=== PATIENT | male | born 1970 | race Caucasian/White ===

== ENCOUNTER 2020-09-09 09:06 | Outpatient (REF) | payer OTHER, SELFPAY ==
[2020-09-09 11:11] LABS: MANUAL DIFF FLAG NO
[2020-09-09 11:24] LABS: Basophils Percent Auto 0.6 % (0-2); Eosinophils Absolute Auto 0.2 X10*3/uL (0.0-0.4); Eosinophils Percent Auto 3.9 % (0-4); Hematocrit 47.8 % (42-52); Hemoglobin 15.9 g/dl (14.0-18.0); Imm Gran Abs Auto 0.01 X10*3/uL (0.00-0.03); Imm Gran Pct Auto 0.2 % (0.0-0.4); Lymphocytes Absolute Auto 2.2 X10*3/uL (1.2-4.9); Lymphocytes Percent Auto 41.1 % (20-40); Mean Corpuscular HGB Conc 33.3 g/dl (31.0-36.0); Mean Corpuscular Hemoglobin 29.4 pg (27.0-33.0); Mean Corpuscular Volume 88.5 fL (80-98); Mean Platelet Volume 9.4 fL (9.4-12.4); Monocytes Absolute Auto 0.4 X10*3/uL (0.1-1.2); Monocytes Percent Auto 7.2 % (2-11); Neutrophils Absolute Auto 2.6 X10*3/uL (2.0-8.3); Platelet Count 246 X10*3/uL (160-400); Red Cell Distribution Width 12.1 % (11.0-16.0); White Blood Count 5.4 X10*3/uL (4.8-10.8)
[2020-09-09 11:57] LABS: Prostate Specific Antigen Scr 1.58 ng/mL (<0.05-4.0); TSH reflex Free T4 0.85 uIU/mL (0.32-4.0)
[2020-09-09 12:03] LABS: Alanine Aminotransferase 38 U/L (0-40); Albumin Level 4.5 g/dL (3.5-5.0); Alkaline Phosphatase 83 U/L (39-117); Anion Gap 13 (12-20); Aspartate Amino Transferase 34 U/L (5-37); Bilirubin Total 0.6 mg/dL (0.0-1.0); Blood Urea Nitrogen 18 mg/dL (9-16); Calcium 8.9 mg/dL (8.4-10.2); Carbon Dioxide 27 mmol/L (22-29); Chloride 103 mmol/L (96-108); Cholesterol 320 mg/dL; Estimated Glomerular Filt Rate > 60; Glucose Fasting 90 mg/dL (60-99); HDL Cholesterol 33 mg/dL; Potassium 3.9 mmol/L (3.3-5.1); Sodium 139 mmol/L (135-145); Total Protein 7.8 g/dL (6.5-8.0); Triglycerides 1463 mg/dL
== END 2020-09-09 09:07 | disposition home or self-care (01) ==
LOC: HO.HMGCLDS 09:06
PROVIDERS: PCP Physician Assistant; Visit Provider Physician Assistant
DX: E78.1 Pure hyperglyceridemia (principal); R53.83 Other fatigue; Z12.5 Encounter for screening for malignant neoplasm of prostate
CPT/HCPCS: 36415; 80053; 80061; 84153; 84443; 85025

== ENCOUNTER → 2021-01-15 08:30 | Outpatient (BNVA) | payer OTHER, SELFPAY | PROVIDERS: PCP Physician Assistant; Visit Provider Internal Medicine ==

== ENCOUNTER 2021-01-19 09:27 | Outpatient (REF) | payer OTHER, SELFPAY ==
[2021-01-19 11:52] LABS: Estimated Average Glucose 103 mg/dL; Hemoglobin A1c % 5.2 %
[2021-01-19 12:03] LABS: Alanine Aminotransferase 25 U/L (0-40); Albumin Level 4.4 g/dL (3.5-5.0); Alkaline Phosphatase 77 U/L (39-117); Anion Gap 13 (12-20); Aspartate Amino Transferase 25 U/L (5-37); Bilirubin Total 0.8 mg/dL (0.0-1.0); Blood Urea Nitrogen 14 mg/dL (9-16); Calcium 9.3 mg/dL (8.4-10.2); Carbon Dioxide 28 mmol/L (22-29); Chloride 106 mmol/L (96-108); Cholesterol 197 mg/dL; Estimated Glomerular Filt Rate > 60; Glucose Random 80 mg/dL (60-115); HDL Cholesterol 45 mg/dL; LDL Cholesterol Calculated 127 mg/dl; Lipase 11 U/L (8-78); Sodium 143 mmol/L (135-145); Triglycerides 125 mg/dL
[2021-01-19 12:13] LABS: Free T4 (Free Thyroxine) 0.92 ng/dL (0.71-1.85); Vitamin D 25-OH Total 35.3 ng/mL (>30)
[2021-01-19 12:26] LABS: Thyroid Stimulating Hormone 0.47 uIU/mL (0.32-4.0)
[2021-01-21 02:26] LABS: LDL Cholesterol Direct 114 mg/dL (<100)
[2021-01-26 13:46] LABS: Apolipoprotein B 99 mg/dL (<90)
== END 2021-01-19 09:28 | disposition home or self-care (01) ==
LOC: HO.HMGCLDS 09:27
PROVIDERS: Physician Assistant; Visit Provider Internal Medicine
DX: E78.5 Hyperlipidemia, unspecified (principal); E78.1 Pure hyperglyceridemia; E55.9 Vitamin D deficiency, unspecified
CPT/HCPCS: 36415; 80053; 80061; 82172; 82306; 83036; 83690; 83721; 84439; 84443

== ENCOUNTER → 2021-04-13 10:14 | Outpatient (BNVA) | payer OTHER, SELFPAY | PROVIDERS: PCP Physician Assistant; Visit Provider Internal Medicine ==

== ENCOUNTER 2021-05-28 10:00 | Outpatient (REF) | payer OTHER, SELFPAY ==
[2021-05-28 12:11] LABS: Cholesterol 182 mg/dL; HDL Cholesterol 54 mg/dL; LDL Cholesterol Calculated 97 mg/dl; Triglycerides 159 mg/dL
[2021-05-30 01:02] LABS: LDL Cholesterol Direct 98 mg/dL (<100)
== END 2021-05-28 10:01 | disposition home or self-care (01) ==
LOC: HO.HMGCLDS 10:00
PROVIDERS: PCP Internal Medicine; Visit Provider Internal Medicine
DX: E78.5 Hyperlipidemia, unspecified (principal)
CPT/HCPCS: 36415; 80061; 83721

== ENCOUNTER → 2021-06-03 09:29 | Outpatient (BNVA) | payer OTHER, SELFPAY | PROVIDERS: PCP Internal Medicine; Visit Provider Internal Medicine ==

== ENCOUNTER 2021-09-02 06:30 | Outpatient (REF) | payer OTHER, SELFPAY ==
[2021-09-02 12:56] LABS: Vitamin D 25-OH Total 27.5 ng/mL (>30)
[2021-09-02 13:27] LABS: Cholesterol 136 mg/dL; HDL Cholesterol 42 mg/dL; LDL Cholesterol Calculated 55 mg/dl; Triglycerides 195 mg/dL
[2021-09-03 10:08] LABS: LDL Cholesterol Direct 55 mg/dL (<100)
== END 2021-09-02 06:31 | disposition home or self-care (01) ==
LOC: HO.HMGCLDS 06:30
PROVIDERS: PCP Internal Medicine; Visit Provider Internal Medicine
DX: E78.1 Pure hyperglyceridemia (principal); E78.5 Hyperlipidemia, unspecified; E55.9 Vitamin D deficiency, unspecified
CPT/HCPCS: 36415; 80061; 82306; 83721

== ENCOUNTER 2022-02-12 09:28 | Outpatient (REF) | payer OTHER, SELFPAY ==
[2022-02-12 11:56] LABS: Cholesterol 156 mg/dL; HDL Cholesterol 43 mg/dL; LDL Cholesterol Calculated 78 mg/dl; Triglycerides 177 mg/dL
[2022-02-12 12:23] LABS: Vitamin D 25-OH Total 43.1 ng/mL (>30)
[2022-02-14 03:01] LABS: LDL Cholesterol Direct 71 mg/dL (<100)
== END 2022-02-12 09:29 | disposition home or self-care (01) ==
LOC: HO.HMGCLDS 09:28
PROVIDERS: PCP Internal Medicine; Visit Provider Internal Medicine
DX: E78.1 Pure hyperglyceridemia (principal); E55.9 Vitamin D deficiency, unspecified
CPT/HCPCS: 36415; 80061; 82306; 83721

== ENCOUNTER 2022-04-08 15:22 | Outpatient (REF) | payer OTHER, SELFPAY ==
--- NOTE | ~2022-04-08 | US_ITS ---
EXAMINATION: US THYROID CLINICAL INFORMATION: Nontoxic goiter, unspecified. COMPARISON: None TECHNIQUE: Linear transducer grayscale and color Doppler examination with attention to the region of the thyroid. FINDINGS: SIZE: Measurements of the thyroid lobes and nodules are given in sagittal, anteroposterior and transverse dimensions respectively. Right Thyroid Lobe: 5.24 x 1.83 x 1.36 cm, volume 6.82 mL. Parenchyma: The gland echotexture is homogeneous. Thyroid vascularity is normal. Left Thyroid Lobe: 5.54 x 1.85 x 1.25 cm, volume 6.70 mL. Parenchyma: The gland echotexture is homogeneous. Thyroid vascularity is normal. Isthmus: 0.50 cm in maximum AP dimension. No focal thyroid nodule is seen. NODES: No lymphadenopathy is seen in the tissue surrounding the thyroid gland. US/US thyroid IMPRESSION: Normal thyroid ultrasound.
== END 2022-04-08 15:23 | disposition home or self-care (01) ==
LOC: HO.HMGCX 15:22
PROVIDERS: PCP Physician Assistant; Visit Provider Internal Medicine
DX: E04.9 Nontoxic goiter, unspecified (principal)
CPT/HCPCS: 76536

== ENCOUNTER 2022-11-12 10:19 | Outpatient (REF) | payer OTHER, SELFPAY ==
[2022-11-12 12:19] LABS: Alanine Aminotransferase 33 U/L (0-40); Albumin Level 4.3 g/dL (3.5-5.0); Alkaline Phosphatase 90 U/L (39-117); Anion Gap 8 (12-20); Aspartate Amino Transferase 28 U/L (5-37); Bilirubin Total 0.7 mg/dL (0.0-1.0); Blood Urea Nitrogen 15 mg/dL (9-16); Calcium 9.3 mg/dL (8.4-10.2); Carbon Dioxide 30 mmol/L (22-29); Chloride 108 mmol/L (96-108); Estimated Glomerular Filt Rate > 60; Glucose Fasting 88 mg/dL (60-99); Sodium 142 mmol/L (135-145); Total Protein 6.8 g/dL (6.5-8.0)
[2022-11-12 12:38] LABS: Prostate Specific Antigen Scr 1.71 ng/mL (<0.05-4.0)
== END 2022-11-12 10:20 | disposition home or self-care (01) ==
LOC: HO.HMGCLDS 10:19
PROVIDERS: PCP Physician Assistant; Visit Provider Physician Assistant
DX: Z12.5 Encounter for screening for malignant neoplasm of prostate (principal); E78.1 Pure hyperglyceridemia
CPT/HCPCS: 36415; 80053; 84153

== ENCOUNTER 2022-11-22 09:29 | Day surgery (SDC) | payer OTHER, SELFPAY ==
--- NOTE | 2022-11-19 14:03 | P.CONAN_ITS ---
Documented by User: Kinjal White NP 11/19/22 14:05 HPI - Anesthesia Eval Consult details Narrative: 52yo M for Colonoscopy PMFSH Active Problems Active Problems: All Active Problems (Updated 03/02/22 @ 13:24 by Shyla Dong DO) Goiter (Acute) COVID-19 virus infection (Acute) Annual physical exam (Acute) Obstructive sleep apnea (Acute) Bilateral renal stones (Acute) Generalized anxiety disorder (Acute) Asthma (Acute) Vitamin D deficiency (Acute) Hyperlipidemia (Acute) Family history of colon cancer (Acute) Hypertriglyceridemia (Acute) Past Medical History Medical History Asthma Bilateral renal stones Family history of colon cancer Generalized anxiety disorder Goiter Hyperlipidemia Vitamin D deficiency Family History Family History (Updated 04/06/22 @ 16:20 by Shade Odonnell PA-C) Father Colon cancer Mother No problems noted. Paternal Uncle Prostate cancer Maternal Grandfather Myocardial infarct Brother Prostate cancer Surgical History Surgical History History of vasectomy Social History Social History (Updated 04/06/22 @ 16:22 by Shade Odonnell PA-C) Housing: House Alcohol intake: current Alcohol intake frequency: holidays/special occasions only Patient Tobacco Use Status: Never used Tobacco e-Cigarette/Vaping Use: Never Used Second Hand Smoke Exposure: No Use of substances other than those prescribed or required for medical reasons: No Are you DNR?: No Advance Directives: No Advance Directives Information Provided: Yes Recently lost weight without trying: No Nutrition Risks: No Nutritional Risk Current occupational status: employed Current occupation: [employer] Cognitive needs: No Hearing needs: No Vision needs: No Meds Allergies Allergy/AdvReac Type Severity Reaction Status Date / Time povidone-iodine [Betadine] Allergy Unknown Stomach Verified 04/06/22 16:09 Pain soap [Betadine] Allergy Unknown Stomach Verified 04/06/22 16:09 Pain fenofibrate AdvReac Mild body and Verified 04/06/22 16:09 stomach pain Home Medications Medication Instructions Recorded Confirmed Last Taken Type cholecalciferol (vitamin D3) 25 50 mcg PO DAILY 03/31/21 11/22/22 Unknown History mcg (1,000 unit) capsule Exam Exam Date and Time: November 19, 2022 1403 Pertinent Lab Results Pertinent Lab Results: Laboratory Tests 11/12/22 10:24 Sodium 142 Potassium 4.0 Chloride 108 Carbon Dioxide 30 H BUN 15 Creatinine 0.75 Assessment and Plan Assessment Anesthesia Assessment: Chart Reviewed Documented by User: Melissa Kam MD 11/22/22 12:57 PMFSH Past Medical History Medical History Asthma Bilateral renal stones Family history of colon cancer Generalized anxiety disorder Goiter Hyperlipidemia Vitamin D deficiency Family History Family History (Updated 04/06/22 @ 16:20 by Shade Odonnell PA-C) Father Colon cancer Mother No problems noted. Paternal Uncle Prostate cancer Maternal Grandfather Myocardial infarct Brother Prostate cancer Family history of problems with anesthesia: No Surgical History Surgical History History of vasectomy History of Problems with Anesthesia: No Social History Social History (Updated 04/06/22 @ 16:22 by Shade Odonnell PA-C) Housing: House Alcohol intake: current Alcohol intake frequency: holidays/special occasions only Patient Tobacco Use Status: Never used Tobacco e-Cigarette/Vaping Use: Never Used Second Hand Smoke Exposure: No Use of substances other than those prescribed or required for medical reasons: No Are you DNR?: No Advance Directives: No Advance Directives Information Provided: Yes Recently lost weight without trying: No Nutrition Risks: No Nutritional Risk Current occupational status: employed Current occupation: [employer] Cognitive needs: No Hearing needs: No Vision needs: No Meds Allergies Allergy/AdvReac Type Severity Reaction Status Date / Time povidone-iodine [Betadine] Allergy Unknown Stomach Verified 04/06/22 16:09 Pain soap [Betadine] Allergy Unknown Stomach Verified 04/06/22 16:09 Pain fenofibrate AdvReac Mild body and Verified 04/06/22 16:09 stomach pain Home Medications Medication Instructions Recorded Confirmed Last Taken Type cholecalciferol (vitamin D3) 25 50 mcg PO DAILY 03/31/21 11/22/22 Unknown History mcg (1,000 unit) capsule Exam Airway Mallampati Class: I TM Dist: >3cm Neck ROM: Full Loose/Missing/Broken Teeth: No Heart: rr Lungs: cta Assessment and Plan Assessment Anesthesia Assessment: Anesthesia Plan Discussed Final Anesthetic Review Family History of Problems with Anesthesia: No History of Problems with Anesthesia: No NPO: Yes ASA Class: I Final Preanesthetic Review: No Changes in Pt Med Stat, Meds/Allgs Chart Reviewed, Consent Obtained/Reviewed and Anes Risks/Benef Reviewed Patient Risk: Low Procedure Risk: Low Anesthetic Plan Anesthetic Plan: MAC: Disposition: Standard PACU
[2022-11-22 10:05] VITALS: BMI 25.6
[2022-11-22 10:24] VITALS: BP 137/85; PULSE 63; RESP 16; TEMP 36.2; O2SAT 98
[2022-11-22] MEDS: Lactated Ringers 1,000 ML 100 ML IVCONT (10:42)
[2022-11-22 12:00] VITALS: BP 110/71; PULSE 68; RESP 16; TEMP 36.6; O2SAT 93
--- NOTE | 2022-11-22 12:01 | P.BOP_ITS ---
Brief Operative Note Date of Service: 11/22/22 Pre-op diagnosis: Screening Post-op diagnosis: other (Polyp) Procedure: Colonoscopy to the cecum and TI with bx/removal of polyp Surgeon: David Peace Anesthesia: MAC Was an Case Checker used for this Procedure?: No Estimated blood loss (mL): 2.0 Pathology: other (A. Polyp at 30cm) Condition: stable Disposition: PACU
[2022-11-22 12:15] VITALS: BP 127/87; PULSE 64; RESP 16; TEMP 36.6; O2SAT 97
--- NOTE | 2022-11-22 23:38 | OP_ITS ---
DATE OF SERVICE: 11/22/2022 SURGEON: David Peace MD INDICATIONS: The patient presents for evaluation of colorectal cancer screening and family history of colon cancer. Full consent has been obtained from him for this, including risks of bleeding and perforation. PREOPERATIVE DIAGNOSIS: Colorectal cancer screening and family history of colon cancer. POSTOPERATIVE DIAGNOSIS: Colorectal cancer screening and family history of colon cancer, small colon polyp, mild diverticulosis and small internal hemorrhoids. PROCEDURE PERFORMED: Colonoscopy to the cecum and terminal ileum with biopsy and removal of polyp. ESTIMATED BLOOD LOSS: COMPLICATIONS: ANESTHESIA: Medication Used: Monitored anesthesia care. ASSISTANTS: SPECIMENS: DESCRIPTION OF PROCEDURE: The patient was placed in the left lateral decubitus position. The digital rectal exam revealed no abnormalities. The Olympus video pediatric colonoscope was then entered into the rectum and advanced easily to the cecum. Once in the cecum, I did identify normal-appearing cecal pouch with appendiceal orifice and a normal-appearing ileocecal valve. The terminal ileum was cannulated and appeared normal. The scope was withdrawn back in the colon. The entire cecum and the ileocecal valve appeared normal. The scope was then slowly withdrawn, assessing all mucosal surfaces carefully. Preparation was excellent. At 30 cm, was a flat, approximately 4 or 5 mm polyp, which was biopsied and completely removed with cold biopsy forceps. I did not visualize any other polyps, colitis, or angiodysplasia. There were occasional diverticula noted in the sigmoid colon. In the rectum, scope was retroflexed, visualizing small internal hemorrhoids, but no other pathology. The rectal mucosa appeared normal. The scope was straightened and withdrawn from the patient. He tolerated the procedure well and was returned to the recovery area in stable condition. IMPRESSION: 1. Small colon polyp. 2. Diverticulosis. 3. Internal hemorrhoids. PLAN: The results of the pathology will be checked. I would recommend a repeat colonoscopy in 5 years for further surveillance. He will, otherwise, see me on a p.r.n. basis. David Peace MD RMW/LJL / [phone]
== END 2022-11-22 12:44 | disposition home or self-care (01) ==
PROVIDERS: PCP Physician Assistant; Visit Provider Internal Medicine
PROC: 0DJD8ZZ Inspection of Lower Intestinal Tract, Via Natural or Artificial Opening Endoscopic (ICD-10-PCS; CPT 45378; principal; 2022-11-22 10:40)
DX: Z12.11 Encounter for screening for malignant neoplasm of colon (principal); Z80.0 Family history of malignant neoplasm of digestive organs; D12.5 Benign neoplasm of sigmoid colon; K57.30 Diverticulosis of large intestine without perforation or abscess without bleeding; K64.8 Other hemorrhoids; E78.5 Hyperlipidemia, unspecified; J45.909 Unspecified asthma, uncomplicated; N20.0 Calculus of kidney; Z79.899 Other long term (current) drug therapy; Z79.51 Long term (current) use of inhaled steroids; Z98.52 Vasectomy status
CPT/HCPCS: 45380; 88305

== ENCOUNTER 2023-04-20 09:30 | Outpatient (REF) | payer OTHER, SELFPAY ==
[2023-04-20 12:17] LABS: Cholesterol 145 mg/dL (<200); HDL Cholesterol 44 mg/dL (>40); LDL Cholesterol Calculated 83 mg/dL (<100); Triglycerides 93 mg/dL (<150)
[2023-04-20 12:35] LABS: Vitamin D 25-OH Total 58.1 ng/mL (>30)
[2023-04-22 08:28] LABS: LDL Cholesterol Direct 75 mg/dL (<100)
== END 2023-04-20 09:31 | disposition home or self-care (01) ==
LOC: HO.HMGCLDS 09:30
PROVIDERS: PCP Internal Medicine; Visit Provider Internal Medicine
DX: E78.1 Pure hyperglyceridemia (principal); E55.9 Vitamin D deficiency, unspecified
CPT/HCPCS: 36415; 80061; 82306; 83721

== ENCOUNTER 2023-05-20 13:50 | Outpatient (AMB) | payer OTHER, SELFPAY ==
--- NOTE | 2023-05-20 13:50 | MHC.PC.OV ---
Vital Signs 05/20/23 13:51 Height 5 ft 11 in Weight 193 lb 2 oz BMI 26.9 BP 130/80 Blood Pressure Location Lt brachial Position Sitting Pulse 83 Pulse Source Pulse Oximeter Pulse Oximetry (%) 98 Oxygen Delivery Method Room Air Intake Visit Reasons: PE Oxygen Equipment Technician Required: No Accompanied by: Self / Same As Patient Allergies povidone-iodine [Betadine] Allergy (Unknown, Verified 05/20/23 14:05) Stomach Pain soap [Betadine] Allergy (Unknown, Verified 05/20/23 14:05) Stomach Pain fenofibrate Adverse Reaction (Mild, Verified 05/20/23 14:05) body and stomach pain Medication List - Last Reconciled 05/20/23 by JEWEL Root albuterol sulfate 90 mcg/actuation (ProAir HFA) 2 puffs inhalation Q4H PRN atorvastatin 80 mg PO BEDTIME 30 days cholecalciferol (vitamin D3) 50 mcg PO DAILY fluticasone propionate 110 mcg/actuation (Flovent HFA) 2 puffs inhalation BID Tobacco use date assessed: 05/20/23 Dental Screening Dental Screen Date: 05/20/23 Did you have a dental visit in the last 12 months?: Yes Did you have a dental problem in the last 6 months where you did not have access to dental care?: No Was dental information given to patient?: Patient has dentist HPI HPI Comments History of Present Illness Details [age] year old male past medical history significant for hyperlipidemia, vitamin-D deficiency, asthma, generalized anxiety disorder. Presents today for physical exam. Denies any chest pain, palpitations, shortness of breath and syncope. Eye exam: UTD Colonoscopy: 2022, Dr. Peace recommended 5 year follow up. Flu shot given, Tdap up-to-date PSA normal in November. Fasting lipid panel reviewed with patient in office today. [facility] Medical History Asthma Bilateral renal stones Family history of colon cancer Generalized anxiety disorder Goiter Hyperlipidemia Vitamin D deficiency Surgical History History of vasectomy Family History Father Colon cancer Mother No problems noted. Paternal Uncle Prostate cancer Maternal Grandfather Myocardial infarct Brother Prostate cancer Social History Housing: House Alcohol intake: current Alcohol intake frequency: holidays/special occasions only Patient Tobacco Use Status: Never used Tobacco e-Cigarette/Vaping Use: Never Used Second Hand Smoke Exposure: No service: No Current occupational status: employed Current occupation: [employer] Current occupational exposures/hazards: Yes Cognitive needs: No Hearing needs: No Vision needs: No Questionnaire PHQ-9 Over the last 2 weeks, how often have you been bothered by any of the following problems? 1. Little interest or pleasure in doing things: not at all 2. Feeling down, depressed, or hopeless: not at all 3. Trouble falling or staying asleep, or sleeping too much: not at all 4. Feeling tired or having little energy: not at all 5. Poor appetite or overeating: not at all 6. Feeling bad about yourself - or that you are a failure or have let yourself or your family down: not at all 7. Trouble concentrating on things, such as reading the newspaper or watching television: not at all 8. Moving or speaking so slowly that other people could have noticed. Or the opposite - being so fidgety or restless that you have been moving around a lot more than usual: not at all 9. Thoughts that you would be better off or of hurting yourself in some way: not at all Total score: 0 56919 - PHQ-9 Billing: Yes Source: Developed by Drs. David Diaz, Renetta Bateman, Jose Chavez and colleagues, with an educational césar from [employer]. Thrive Questionnaire Date Thrive assessed: 05/20/23 I am a: Patient What is your living situation today?: I have a steady place to live Within the past 12 months, did the food you bought not last and you didn't have the money to get more?: Never true Within the past 12 months, did you worry whether your food would run out before you got money to buy more?: Never true Do you have trouble paying for medicines?: No Do you have trouble getting transportation to medical appointments?: No Do you have trouble paying your heating and electricity bill?: No Do you have trouble taking care of your child, family member or friend?: No Do you have trouble with day-to-day activities such as bathing, preparing meals, shopping, managing finances, etc.?: No Are you currently unemployed and looking for a job?: No Are you interested in more education?: No Please select the resources that you would like help with: None Currently or been in a relationship where the following occur: no concerns reported AUDIT C Alcohol Use Questionnaire (AUDIT-C) 1. How often do you have a drink containing alcohol?: Monthly or less 2. How many drinks containing alcohol do you have on a typical day when you are drinking?: 5 or 6 3. How often do you have six or more drinks on one occasion?: Never Total Score: 3 JUAN-7 AMB Questionnaire JUAN-7 Date JUAN - 7 assessed: 05/20/23 Feeling nervous, anxious, or on edge: 0 = Not at all Not being able to stop or control worryin = Not at all Worrying too much about different things: 0 = Not at all Trouble relaxin = Not at all Being so restless that it is hard to sit still: 0 = Not at all Becoming easily annoyed or irritable: 0 = Not at all Feeling afraid as if something awful might happen: 0 = Not at all Total JUAN-7 score (0-4 normal; 5-9 mild; 10-14 moderate; 15-21 severe): 0 Source: Developed by Drs. David Diaz, Renetta Bateman, Jose Chavez and colleagues, with an educational césar from [employer]. JUAN-7 Assessment Billing JUAN-7 Assessment Tool: JUAN-7 Assessment 40980 Review of Systems Const Denies chills, Denies fatigue, Denies fever(s) and Denies poor appetite Eyes Denies no additional complaints ENT Reports Normal hearing present Card Denies chest pain, Denies syncope, Denies rapid heart rate and Denies dyspnea Resp Denies cough and Denies dyspnea GI Denies change in stool character, Denies constipation, Denies diarrhea, Denies nausea and Denies vomiting Denies dysuria, Denies urinary frequency and Denies urinary urgency Neuro Reports Normal hearing present, Denies confusion and Denies syncope Psych Denies confusion Endo Denies fatigue Physical exam (Primary Care) Vital Signs: Last Vital Signs Pulse 83 05/20/23 13:51 BP 130/80 05/20/23 13:51 Pulse Ox 98 05/20/23 13:51 Oxygen Delivery Method Room Air 05/20/23 13:51 BMI result Body Mass Index 26.9 Tobacco/Smoking Status: Tobacco use Status Tobacco use date assessed 05/20/23 05/20/23 13:57 Patient Tobacco Use Status Never used Tobacco 05/20/23 13:57 e-Cigarette/Vaping Use Never Used 05/20/23 13:57 PHQ-9: PHQ-9 Score PHQ-9: Total score 0 05/20/23 14:04 Thrive Assessment: Date of Thrive Assessment Date Thrive assessed 05/20/23 05/20/23 13:57 Currently or been in a relationship where the following occur: no concerns reported Const General: No confusion Orientation/consciousness: No confusion HENMT Head: Yes normocephalic and Yes atraumatic Ears: external ears normal and TM's normal bilaterally General nose exam: Normal external nose present and Normal nasal mucous membranes and turbinates present Face and sinus: Yes normal facial exam and Yes sinuses nontender Mouth: moist mucous membranes Throat: Yes tonsils normal Eyes Conjunctivae: conjunctivae normal Sclerae: sclerae normal Pupils: Equal, round and reactive pupils present and Pupils normal by confrontation EOM: EOMs intact bilaterally Direct Ophthalmoscopy: normal light reflex Neck Neck: Yes no lymphadenopathy and Yes supple Thyroid: Thyroid normal Chest Chest palpation & inspection: normal inspection of the chest Resp Effort & Inspection: normal respiratory effort Auscultation: clear to auscultation bilaterally, no crackles, no rhonchi and no wheezes Cardio Rate: regular rate Rhythm: regular rhythm Peripheral pulses: radial pulses present and dorsalis pedis present GI Inspection: Yes normal to inspection Palpation (GI): Soft to palpation, nontender and No hepatosplenomegaly present Auscultation: normoactive bowel sounds Skin General skin exam: no rashes or lesions noted Neuro General: No confusion Cranial nerves: Yes Equal, round and reactive pupils present and Yes Normal hearing present Cognition (Neuro): normal cognition Gait exam (Neuro): Normal gait present Motor exam (neuro): 5/5 motor strength present throughout Deep tendon reflexes (DTR's): Right brachioradialis reflex intensity grade: 2+, Left brachioradialis reflex intensity grade: 2+, Right patellar reflex intensity grade: 2+ and Left patellar reflex intensity grade: 2+ Extrem General: No edema Office Procedures Flu Questionnaire Does the patient have a severe egg allergy?: No Does the patient have severe life threatening allergies?: No Does the patient have a fever or illness today?: No Has the patient ever had Guillain-[place] Syndrome?: No Has the patient ever had any past reaction to a flu shot?: No Immunizations flu vacc [id number] 6mos up(PF) 60 mcg(15 mcgx4)/0.5 mL IM syringe Performing Provider: JEWEL Root [facility] [place] Administered by: BRAD Longoria on 05/20/23 14:04 Dose Route Admin Location Dispensed Lot Number Expiration Date NDC [employer] Specialist 0.5 mL IM Left Deltoid 0.5 mL [id number] 12/04/23 [id number] [employer] VIS Given Date VIS Provided VIS Publication Date 05/20/23 Single Vaccine 21 Eligibility Eligibility Date Funding Source Not [facility] Eligible 05/20/23 Private Assessment and Plan Assessment & Plan (1) Hyperlipidemia: Code(s): E78.5 - Hyperlipidemia, unspecified Plan: LDL 75. Continue on atorvastatin. Follow low-cholesterol diet. (2) Asthma: Code(s): J45.909 - Unspecified asthma, uncomplicated Plan: Continue on albuterol as needed. (3) Annual physical exam: Code(s): Z00.00 - Encounter for general adult medical examination without abnormal findings Plan: Follow-up in 1 year for annual exam. Plan Follow-up bone 6 months Orders: Orders Influenza [id number] Immunization Today Z23 - Encounter for immunization Medications: Refilled atorvastatin 80 mg PO BEDTIME 30 days 30 tabs 11RF Coding Level of Care Code Est Pt Level 3 (32960) Est Pt Prev Care 40-64y(95997) Diagnoses Hyperlipidemia E78.5 Asthma J45.909 Annual physical exam Z00.00 Additional Codes JUAN-7 Assessment Billing - JUAN-7 Assessment Tool: JUAN-7 Assessment 73594 ([id number])
[2023-05-20 13:51] VITALS: BP 130/80; PULSE 83; O2SAT 98; BMI 26.9
== END 2023-05-20 14:15 | disposition home or self-care (01) ==
PROVIDERS: PCP Physician Assistant; Visit Provider Nurse Practitioner Family
DX: Z00.00 Encounter for general adult medical examination without abnormal findings (principal); E78.5 Hyperlipidemia, unspecified; J45.909 Unspecified asthma, uncomplicated; Z23 Encounter for immunization
CPT/HCPCS: 90471; 90686; 99396

== ENCOUNTER 2023-06-16 13:48 | Outpatient (AMB) | payer OTHER, SELFPAY ==
--- NOTE | 2023-06-16 13:51 | MHC.OFFVIS ---
Intake Vital Signs 06/16/23 13:52 Height 5 ft 11 in Weight 200 lb 13.458 oz BMI 28.0 BP 126/80 Blood Pressure Location Rt brachial Position Sitting Pulse 73 Pulse Source Pulse Oximeter Intake Visit Reasons: F/U HLD/LVM Intake Note: Patient presents today to follow up on HLD. Last seen by Dr. Carlton on 03/02/2022. Machine Stamper Required: No Accompanied by: Self / Same As Patient Allergies povidone-iodine [Betadine] Allergy (Unknown, Verified 06/16/23 14:04) Stomach Pain soap [Betadine] Allergy (Unknown, Verified 06/16/23 14:04) Stomach Pain fenofibrate Adverse Reaction (Mild, Verified 06/16/23 14:04) body and stomach pain HPI HPI Comments History of Present Illness Details 51 YO Male with a PMHx Hypertriglyceridemia who is seen in F/U for hypertriglyceridemia. The patient last saw Dr. Carlton on 03/02/2022 He has a long standing history of elevated triglycerides, dating back as far as 2005 when his triglycerides were over 700. LDL was WNL but total Cholesterol was elevated. 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 He was started on Atorvastatin 40 mg PO daily, titrated upward to 80 mg PO daily and drastically changed his diet, focusing more on lean proteins and cutting out foods high in saturated fats. His Triglycerides significantly improved. He also has a history of Vitamin D deficiency. He is unaware of any family history of HLD, hypertriglyceridemia, or premature CAD in his family, though his Father did pass away in his 40 to early 50's. His Daughter did recently have a lipid panel assessed and also has HTG with HLD. He has never smoked cigarettes. Labs: Laboratory Tests 02/12/22 02/12/22 09:33 09:33 Triglycerides 177 Cholesterol 156 LDL Cholesterol Di rect 71 HDL Cholesterol 43 25-OH Vitamin D To onel 43.1 [facility] Medical History Goiter Bilateral renal stones Generalized anxiety disorder Asthma Vitamin D deficiency Hyperlipidemia Family history of colon cancer Surgical History History of vasectomy Family History Father Colon cancer Mother No problems noted. Paternal Uncle Prostate cancer Maternal Grandfather Myocardial infarct Brother Prostate cancer Social History Housing: House Alcohol intake: current Alcohol intake frequency: holidays/special occasions only Patient Tobacco Use Status: Never used Tobacco e-Cigarette/Vaping Use: Never Used Second Hand Smoke Exposure: No service: No Current occupational status: employed Current occupation: [employer] Current occupational exposures/hazards: Yes Cognitive needs: No Hearing needs: No Vision needs: No Physical Exam Vital Signs: Last Vital Signs Pulse 73 06/16/23 13:52 BP 126/80 06/16/23 13:52 BMI result Body Mass Index 28.0 Assessment & Plan Assessment & Plan (1) Hypertriglyceridemia: Code(s): E78.1 - Pure hyperglyceridemia Plan: This 52-year-old white male with a history of elevated triglycerides currently being treated with atorvastatin 80 mg with triglycerides currently at goal. At this point, patient returned to the care of his primary care provider and returned back to endocrinology as needed Coding Level of Care Code Est Pt Level 3 (45030) Diagnoses Hypertriglyceridemia E78.1
[2023-06-16 13:52] VITALS: BP 126/80; PULSE 73; BMI 28.0
== END 2023-06-16 14:20 | disposition home or self-care (01) ==
PROVIDERS: PCP Internal Medicine; Visit Provider Internal Medicine Endocrinology, Diabetes & Metabolism
DX: E78.1 Pure hyperglyceridemia (principal)
CPT/HCPCS: 99213

== ENCOUNTER → 2023-06-16 13:48 | Outpatient (BNVA) | payer OTHER, SELFPAY | PROVIDERS: Visit Provider Internal Medicine Endocrinology, Diabetes & Metabolism ==

== ENCOUNTER 2023-11-30 14:32 | Outpatient (AMB) | payer OTHER, SELFPAY ==
[2023-11-30 14:39] VITALS: BP 130/86; PULSE 66; O2SAT 97; BMI 27.1
--- NOTE | 2023-11-30 14:39 | MHC.PC.OV ---
Vital Signs 11/30/23 14:39 Height 5 ft 11 in Weight 194 lb 0.6 oz BMI 27.1 BP 130/86 Blood Pressure Location Lt brachial Position Sitting Pulse 66 Pulse Source Pulse Oximeter Pulse Oximetry (%) 97 Oxygen Delivery Method Room Air Intake Visit Reasons: follow up Intake Note: Patient is here to follow up Drop Wire Builder Required: No Allergies povidone-iodine [Betadine] Allergy (Unknown, Verified 11/30/23 14:39) Stomach Pain soap [Betadine] Allergy (Unknown, Verified 11/30/23 14:39) Stomach Pain fenofibrate Adverse Reaction (Mild, Verified 11/30/23 14:39) body and stomach pain Tobacco use date assessed: 11/30/23 Dental Screening Dental Screen Date: 11/30/23 Did you have a dental visit in the last 12 months?: Yes Did you have a dental problem in the last 6 months where you did not have access to dental care?: No Was dental information given to patient?: Patient has dentist HPI follow up HPI Details 53-year-old overweight male with hypercholesterolemia asthma coming in for follow-up last seen in May 2023. Patient's colonoscopy was last done in 2015 and has been advised 5 years. Patient also follows up with endocrinology having a very high triglyceride patient has been started on atorvastatin 80 mg once a day [facility] Medical History (Updated 11/30/23 @ 15:59 by Dorys Sepulveda MD) Goiter Bilateral renal stones Generalized anxiety disorder Asthma Vitamin D deficiency Hyperlipidemia Family history of colon cancer Surgical History History of colonoscopy History of vasectomy Family History Father Colon cancer Mother No problems noted. Paternal Uncle Prostate cancer Maternal Grandfather Myocardial infarct Brother Prostate cancer Social History Housing: House Alcohol intake: current Alcohol intake frequency: holidays/special occasions only Patient Tobacco Use Status: Never used Tobacco e-Cigarette/Vaping Use: Never Used Second Hand Smoke Exposure: No service: No Current occupational status: employed Current occupation: [employer] Current occupational exposures/hazards: Yes Cognitive needs: No Hearing needs: No Vision needs: No Questionnaire PHQ-9 Over the last 2 weeks, how often have you been bothered by any of the following problems? 1. Little interest or pleasure in doing things: not at all 2. Feeling down, depressed, or hopeless: not at all 3. Trouble falling or staying asleep, or sleeping too much: not at all 4. Feeling tired or having little energy: not at all 5. Poor appetite or overeating: not at all 6. Feeling bad about yourself - or that you are a failure or have let yourself or your family down: not at all 7. Trouble concentrating on things, such as reading the newspaper or watching television: not at all 8. Moving or speaking so slowly that other people could have noticed. Or the opposite - being so fidgety or restless that you have been moving around a lot more than usual: not at all 9. Thoughts that you would be better off or of hurting yourself in some way: not at all Total score: 0 17524 - PHQ-9 Billing: Yes Source: Developed by Drs. David Diaz, Renetta Bateman, Jose Chavez and colleagues, with an educational césar from [employer]. Thrive Questionnaire Date Thrive assessed: 11/30/23 I am a: Patient What is your living situation today?: I have a steady place to live Within the past 12 months, did the food you bought not last and you didn't have the money to get more?: Never true Within the past 12 months, did you worry whether your food would run out before you got money to buy more?: Never true Do you have trouble paying for medicines?: No Do you have trouble getting transportation to medical appointments?: No Do you have trouble paying your heating and electricity bill?: No Do you have trouble taking care of your child, family member or friend?: No Do you have trouble with day-to-day activities such as bathing, preparing meals, shopping, managing finances, etc.?: No Are you currently unemployed and looking for a job?: No Are you interested in more education?: No Please select the resources that you would like help with: None Currently or been in a relationship where the following occur: No concerns reported THRIVE Score: 0 AUDIT C Alcohol Use Questionnaire (AUDIT-C) 1. How often do you have a drink containing alcohol?: Monthly or less 2. How many drinks containing alcohol do you have on a typical day when you are drinking?: 5 or 6 3. How often do you have six or more drinks on one occasion?: Never Total Score: 3 JUAN-7 AMB Questionnaire JUAN-7 Date JUAN - 7 assessed: 11/30/23 Feeling nervous, anxious, or on edge: 0 = Not at all Not being able to stop or control worryin = Not at all Worrying too much about different things: 0 = Not at all Trouble relaxin = Not at all Being so restless that it is hard to sit still: 0 = Not at all Becoming easily annoyed or irritable: 0 = Not at all Feeling afraid as if something awful might happen: 0 = Not at all Total JUAN-7 score (0-4 normal; 5-9 mild; 10-14 moderate; 15-21 severe): 0 Source: Developed by Drs. David Diaz, Renetta Bateman, Jose Chavez and colleagues, with an educational césar from [employer]. JUAN-7 Assessment Billing JUAN-7 Assessment Tool: JUAN-7 Assessment 83041 Physical exam (Primary Care) Vital Signs: Last Vital Signs Pulse 66 11/30/23 14:39 BP 130/86 11/30/23 14:39 Pulse Ox 97 11/30/23 14:39 Oxygen Delivery Method Room Air 11/30/23 14:39 BMI result Body Mass Index 27.1 Tobacco/Smoking Status: Tobacco use Status Tobacco use date assessed 11/30/23 11/30/23 14:40 Patient Tobacco Use Status Never used Tobacco 11/30/23 14:40 e-Cigarette/Vaping Use Never Used 11/30/23 14:40 PHQ-9: PHQ-9 Score PHQ-9: Total score 0 11/30/23 14:44 Thrive Assessment: Date of Thrive Assessment Date Thrive assessed 11/30/23 11/30/23 14:40 Currently or been in a relationship where the following occur: No concerns reported Const General: alert; No acute distress Eyes Conjunctivae: conjunctivae normal Resp Auscultation: clear to auscultation bilaterally Cardio Rate: regular rate Rhythm: regular rhythm GI Inspection: Yes normal to inspection Extrem General: Yes normal to inspection and No edema Assessment and Plan Assessment & Plan (1) Hypertriglyceridemia: Code(s): E78.1 - Pure hyperglyceridemia Plan: Avoid fried foods, chicken skin, eggs, butter margarine, pastries and meat. Be it pork or beef they have a lot of cholesterol LDL goal of less than 130 and triglyceride of less than 150 on atorvastatin 80 mg once a day (2) Asthma: Code(s): J45.909 - Unspecified asthma, uncomplicated Plan: Patient's asthma is controlled and has not been using any inhalers. (3) Generalized anxiety disorder: Code(s): F41.1 - Generalized anxiety disorder Plan: Stable (4) Tubular adenoma of colon: Comment: 12/2022 Code(s): D12.6 - Benign neoplasm of colon, unspecified Plan: Five years retesting due to tubular adenoma and family history Orders: Orders Free T4 (Free Thyroxine) Today E78.1 - Pure hyperglyceridemia Thyroid Stimulating Hormone Today E78.1 - Pure hyperglyceridemia Lipid Panel Today E78.00 - Pure hypercholesterolemia, unspecified, E78.1 - Pure hyperglyceridemia Prostate Specific Antigen Scr Today E78.1 - Pure hyperglyceridemia Complete Blood Count Auto Diff Today E78.1 - Pure hyperglyceridemia Comprehensive Met. Panel Today E78.1 - Pure hyperglyceridemia Vitamin B12 and Folate Today E78.1 - Pure hyperglyceridemia Medications: Changed From atorvastatin 80 mg PO BEDTIME 30 days 30 tabs 11RF E78.1 - Pure hyperglyceridemia To atorvastatin 80 mg PO BEDTIME 90 days 90 tabs 2RF E78.1 - Pure hyperglyceridemia Coding Level of Care Code Est Pt Level 4 (25807) Diagnoses Hypertriglyceridemia E78.1 Asthma J45.909 Generalized anxiety disorder F41.1 Tubular adenoma of colon D12.6 Additional Codes JUAN-7 Assessment Billing - JUAN-7 Assessment Tool: JUAN-7 Assessment [id number] ([id number])
== END 2023-11-30 15:59 | disposition home or self-care (01) ==
LOC: HO.HMGH 14:32
PROVIDERS: PCP Internal Medicine; Visit Provider Internal Medicine
DX: E78.1 Pure hyperglyceridemia (principal); J45.909 Unspecified asthma, uncomplicated; F41.1 Generalized anxiety disorder; D12.6 Benign neoplasm of colon, unspecified
CPT/HCPCS: 99214

== ENCOUNTER 2024-05-21 17:22 | Outpatient (AMB) | payer OTHER, SELFPAY ==
--- OUTSIDE RECORDS SUMMARY | 2024-05-21 17:24 | XMS_ITS ---
Author Organization [facility] Address [address] [place] [address] Care Team Providers Care Sanitation Inspector Name Role Phone Po Dorys TERRAZAS Primary Care Provider David Bates [phone] REASON FOR VISIT screening colonoscopy/family hx of colon cancer PROBLEMS Problem Type ICD Code Onset Dates Problem Status W/U Status Risk SNOMED Code Notes Problem Diverticulosis of large intestine without perforation or abscess without bleeding (K57.30) Active confirmed Diverticul ar disease of colon (921314797) Encounters Encounter Location Date Provider Diagnosis [facility] Outpatient [address] [place] [address] [id number] 11/22/2022 David Peace Encounter for scre ening colonoscopy Z12.11 ; Family history of colon cancer Z80.0 ; Colon polyps K63.5 ; Diverticulosis of large intestine without perforation or abscess without bleeding K57.30 and Other hemorrhoids K64.8 ASSESSMENTS Encounter Date Diagnosis Assessment Notes Treatment Notes Treatment Clinical Notes 11/22/2022 Encounter for screening colonoscopy (ICD-10 - Z12.11) 11/22/2022 Family history of colon cancer (ICD-10 - Z80.0) 11/22/2022 Colon polyps (ICD-10 - K63.5) 11/22/2022 Diverticulosis of large intestine without perforation or abscess without bleeding (ICD-10 - K57.30) 11/22/2022 Other hemorrhoids (ICD-10 - K64.8) PLAN OF TREATMENT Next Appt Details Follow Up: prn, Reason:
--- OUTSIDE RECORDS SUMMARY | 2024-05-21 17:24 | XMS_ITS | Patient Health Record ---
Author Organization [facility] Address [address] [place] [address] Care Team Providers Care Pollution Control Technician Name Role Phone Dorys Sepulveda MD Primary Care Provider David Bates [phone] ALLERGIES Allergen (clinical drug ingredient) Drug/Non Drug Allergy documented on EMR Reaction Allergy Type Onset Date Status povidone-iodine benadyne (uncoded) Unknown Allergy Active REASON FOR REFERRAL No Information MEDICATIONS Medication SIG (Take, Route, Frequency, Duration) Notes Start Date End Date Status Fenofibrate Not-Taki ng Atorvastatin Calcium 80 MG 1 tablet Orally Once a day for 30 day(s) Active Allergy Relief prn Activ e Aspirin Not-Taking Multivitamin Active Vitamin D Active Triple Flex Active IMMUNIZATIONS Vaccine Route Administration Date Status Comme nts Influenza Unknown 03/23/2022 Administered SOCIAL HISTORY Sex Assigned At : Social History Observation Description Sex Assigned At Unknown PROBLEMS Problem Type ICD Code Onset Dates Problem Status W/U Status Risk SNOMED Code Notes Problem Family history of colon cancer (Z80.0) Active confirmed 873751190 Problem Encounter for screening for malignant neoplasm of colon (Z12.11) Active confirmed 561573088 Problem Encounter for screening for malignant neoplasm of rectum (Z12.12) Active confirmed Screening for malignant neoplasm of rectum (565616343) Problem Preprocedural examination (Z01.818) Active confirmed 61118933 Problem RUQ abdominal pain (R10.11) Active confirmed 750108269 Problem Colon cancer screening (Z12.11) Active confirmed 788367027 Problem Diverticulosis of large intestine without perforation or abscess without bleeding (K57.30) Active confirmed Diverticul ar disease of colon (663978330) PLAN OF TREATMENT Pending Test Test Name Order Date Pathology 11/22/2022 Future Test Test Name Order Date COLONOSCOPY 10/22/2015 COLONOSCOPY 09/29/2022 Insurance Providers Payer Name Payer Address Payer Phone Subscriber Number Group Number Insured Name Patient Relationship to Insured Coverage Start Date Coverage End Date [facility] [address] [place] [address] [id number] MUKESH ROY Self - patient is the insured MEDICAL (GENERAL) HISTORY Medical History History ICD Code Seasonal allergies/asthma Kidney stones/Hematuria Denies IN,DM,CVA,renal disease Screening Colonoscopy in 2009 with remov al of a hyperplastic polyp Screening Colonoscopy in 02/2016 was nega tive Hyperlipidemia Surgical History Surgery Date(Month/Year) Vasectomy Small cyst right side of nose
--- NOTE | 2024-05-21 17:39 | A.OFFPC_ITS ---
Vital Signs 05/21/24 17:40 05/21/24 18:12 Height 5 ft 11 in Weight 190 lb BMI 26.5 BP 146/90 H 136/90 H Blood Pressure Location Lt brachial Lt brachial Position Sitting Sitting Pulse 68 Pulse Source Pulse Oximeter Pulse Oximetry (%) 98 Oxygen Delivery Method Room Air Intake Visit Reasons: Annual Exam Intake Note: Patient here for a physical exam Animal Shelter Clerk Required: No Accompanied by: Self / Same As Patient Allergies povidone-iodine [Betadine] Allergy (Unknown, Verified 05/21/24 17:40) Stomach Pain soap [Betadine] Allergy (Unknown, Verified 05/21/24 17:40) Stomach Pain fenofibrate Adverse Reaction (Mild, Verified 05/21/24 17:40) body and stomach pain Medication List - Last Reconciled 05/21/24 by Dorys Sepulveda MD albuterol sulfate 90 mcg/actuation (ProAir HFA) 2 puffs inhalation Q4H PRN cholecalciferol (vitamin D3) 50 mcg PO DAILY levocetirizine (Xyzal) 5 mg PO DAILY red yeast rice 600 mg PO DAILY sour diop extract (Tart Diop Extract) mg PO Tobacco use date assessed: 11/30/23 Dental Screening Dental Screen Date: 05/21/24 Did you have a dental visit in the last 12 months?: Yes Did you have a dental problem in the last 6 months where you did not have access to dental care?: No Was dental information given to patient?: Patient has dentist HPI Annual Exam HPI Details The patient is a 53-year-old male presenting with elevated blood pressure. On multiple previous occasions, the patient?s blood pressure was noted to be high during medical and dental visits. He is concerned about his blood pressure readings and mentions dietary factors such as caffeine intake that might contribute to temporary elevations. The patient has been advised to monitor blood pressure at home twice daily for a week to better understand the trend. The patient also has a history of hyperlipidemia. He previously experienced muscle aches while on fenofibrate, a cholesterol medication, and is currently using dietary measures such as tart diop and exercise to manage his cholesterol levels. The patient takes vitamin D supplements and discusses his current non-medicinal cholesterol management approach. He recalls his cholesterol test results from last year being favorable. - Blood pressure goal set at 130/80 mmHg or below. - Recommended blood pressure monitoring twice daily for a week, with recorded results. - Regular exercise and dietary intervent ions to manage cholesterol levels. - Scheduled fasting blood work to be don e, including cholesterol testing. - Previous colonoscopy up to date. - Annual physical examination completed with attention to routine health screenings. - Discussion around influenza vaccinatio n, acknowledging flu season onset. 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 - Consumes alcohol approximately 6 drink s per month, typically during social occasions. - No tobacco or recreational drug use. - Engages in exercise and some dietary m anagement for hyperlipidemia. - Occupational exposure to dust managed by keeping Q-tips available. - Cardiovascular: Reports no chest pain, heartburn. - Gastrointestinal: Denies nausea, vomit ing; indicates bowel movements are regular. - Neurological: Denies dizziness, syncop e. - Respiratory: Denies waking up short of breath; no recent asthma inhaler use. - General: Denies fever, recent illness. - Cardiovascular: Reports no chest pain, heartburn. - Gastrointestinal: Denies nausea, vomit ing; indicates bowel movements are regular. - Neurological: Denies dizziness, syncop e. - Respiratory: Denies waking up short of breath; no recent asthma inhaler use. - General: Denies fever, recent illness. - Labs: Scheduled fasting blood work. - Tests and Diagnostics: No new diagnost ics performed in visit. [facility] Medical History (Updated 05/21/24 @ 18:14 by Dorys Sepulveda MD) Goiter Bilateral renal stones Generalized anxiety disorder Asthma Vitamin D deficiency Hyperlipidemia Family history of colon cancer Surgical History History of colonoscopy History of vasectomy Family History (Updated 05/21/24 @ 17:42 by BRAD Mallory) Father Colon cancer Mother No problems noted. Paternal Uncle Prostate cancer Maternal Grandfather Myocardial infarct Brother Prostate cancer Social History (Updated 05/21/24 @ 18:19 by Dorys Sepulveda MD) Housing: House Alcohol intake: current Alcohol intake frequency: holidays/special occasions only Comment: 6 pack once a month Patient Tobacco Use Status: Never used Tobacco e-Cigarette/Vaping Use: Never Used Second Hand Smoke Exposure: No service: No Current occupational status: employed Current occupation: [employer] Current occupational exposures/hazards: Yes Cognitive needs: No Hearing needs: No Vision needs: No Questionnaire PHQ-9 Over the last 2 weeks, how often have you been bothered by any of the following problems? 1. Little interest or pleasure in doing things: not at all 2. Feeling down, depressed, or hopeless: not at all 3. Trouble falling or staying asleep, or sleeping too much: not at all 4. Feeling tired or having little energy: not at all 5. Poor appetite or overeating: not at all 6. Feeling bad about yourself - or that you are a failure or have let yourself or your family down: not at all 7. Trouble concentrating on things, such as reading the newspaper or watching television: not at all 8. Moving or speaking so slowly that other people could have noticed. Or the opposite - being so fidgety or restless that you have been moving around a lot more than usual: not at all 9. Thoughts that you would be better off or of hurting yourself in some way: not at all Total score: 0 Depression Screening Interpretation: Negative Depression Screening Done: Yes Source: Developed by Drs. David Diaz, Renetta Bateman, Jose Chavez and colleagues, with an educational césar from [employer]. Thrive Questionnaire Date Thrive assessed: 05/21/24 I am a: Patient What is your living situation today?: I choose not to answer this question Within the past 12 months, did the food you bought not last and you didn't have the money to get more?: I choose not to answer this question Within the past 12 months, did you worry whether your food would run out before you got money to buy more?: I choose not to answer this question Do you have trouble paying for medicines?: I choose not to answer this question Do you have trouble getting transportation to medical appointments?: I choose not to answer this question Do you have trouble paying your heating and electricity bill?: I choose not to answer this question Do you have trouble taking care of your child, family member or friend?: I choose not to answer this question Do you have trouble with day-to-day activities such as bathing, preparing meals, shopping, managing finances, etc.?: I choose not to answer this question Are you currently unemployed and looking for a job?: I choose not to answer this question Are you interested in more education?: I choose not to answer this question Please select the resources that you would like help with: None Currently or been in a relationship where the following occur: I choose not to answer THRIVE Score: 0 AUDIT C Alcohol Use Questionnaire (AUDIT-C) 1. How often do you have a drink containing alcohol?: Monthly or less 2. How many drinks containing alcohol do you have on a typical day when you are drinking?: 1 or 2 Total Score: 1 JUAN-7 AMB Questionnaire JUAN-7 Date JUAN - 7 assessed: 11/30/23 Feeling nervous, anxious, or on edge: 0 = Not at all Not being able to stop or control worryin = Not at all Worrying too much about different things: 0 = Not at all Trouble relaxin = Not at all Being so restless that it is hard to sit still: 0 = Not at all Becoming easily annoyed or irritable: 0 = Not at all Feeling afraid as if something awful might happen: 0 = Not at all Total JUAN-7 score (0-4 normal; 5-9 mild; 10-14 moderate; 15-21 severe): 0 Source: Developed by Drs. David Diaz, Renetta Bateman, Jose Chavez and colleagues, with an educational césar from [employer]. Review of Systems Const Denies poor appetite and Denies weakness Eyes Denies no additional complaints ENT Reports Normal hearing present, Denies dizziness, Denies nasal congestion, Denies tinnitus and Denies sore throat Card Denies chest pain, Denies syncope, Denies rapid heart rate and Denies dyspnea Resp Denies cough and Denies dyspnea GI Denies change in stool character, Reports constipation, Denies diarrhea, Denies nausea and Denies vomiting Denies dysuria and Denies urinary frequency Neuro Reports Normal hearing present, Denies confusion, Denies dizziness, Denies syncope and Denies weakness Psych Denies confusion Physical exam (Primary Care) Vital Signs: Last Vital Signs Pulse 68 05/21/24 17:40 BP 136/90 H 05/21/24 18:12 Pulse Ox 98 05/21/24 17:40 Oxygen Delivery Method Room Air 05/21/24 17:40 BMI result Body Mass Index 26.5 Tobacco/Smoking Status: Tobacco use Status Tobacco use date assessed 11/30/23 05/21/24 17:46 Patient Tobacco Use Status Never used Tobacco 05/21/24 18:19 e-Cigarette/Vaping Use Never Used 05/21/24 18:19 PHQ-9: PHQ-9 Score PHQ-9: Total score 0 05/21/24 18:34 Depression Screening Interpretation: Negative Thrive Assessment: Date of Thrive Assessment Date Thrive assessed 05/21/24 05/21/24 17:46 Currently or been in a relationship where the following occur: I choose not to answer Const General: No confusion Orientation/consciousness: No confusion HENMT Head: Yes normocephalic Ears: external ears normal and TM's normal bilaterally Face and sinus: Yes normal facial exam Mouth: moist mucous membranes Throat: Yes tonsils normal Eyes Conjunctivae: conjunctivae normal Pupils: Equal, round and reactive pupils present and Pupil accommodation reflex normal Direct Ophthalmoscopy: normal light reflex Neck Neck: No lymphadenopathy Thyroid: Thyroid normal Chest Chest palpation & inspection: normal inspection of the chest Resp Effort & Inspection: normal respiratory effort and no audible wheezes Auscultation: clear to auscultation bilaterally, no crackles, no wheezes and lung sounds not diminished Cardio Rate: regular rate Rhythm: regular rhythm Peripheral pulses: radial pulses present and dorsalis pedis present GI Other: decline Palpation (GI): no masses Auscultation: normal bowel sounds and normoactive bowel sounds Rectal Exam - Male: Yes deferred Other: declined Skin General skin exam: no rashes or lesions noted Rashes: no rashes Neuro General: No confusion Cranial nerves: Yes Equal, round and reactive pupils present and Yes Normal hearing present Cognition (Neuro): normal cognition Gait exam (Neuro): Normal gait present Motor exam (neuro): 5/5 motor strength present throughout Deep tendon reflexes (DTR's): Right brachioradialis reflex intensity grade: 2+, Left brachioradialis reflex intensity grade: 2+, Right patellar reflex intensity grade: 2+ and Left patellar reflex intensity grade: 2+ Extrem General: No edema Office Procedures Flu Questionnaire Does the patient have a severe egg allergy?: No Does the patient have severe life threatening allergies?: No Does the patient have a fever or illness today?: No Has the patient ever had Guillain-Paola Syndrome?: No Has the patient ever had any past reaction to a flu shot?: No Immunizations Fluarix Triv 1335-1267 (PF) 45 mcg (15 mcg x 3)/0.5 mL IM syringe Performing Provider: Dorys Sepulveda MD Per[facility] Administered by: BRAD Mallory on 05/21/24 18:34 Dose Route Admin Location Dispensed Lot Number Expiration Date [facility] Nozzle Operator 0.5 mL IM Left Deltoid 0.5 mL [id number] 12/03/24 [id number] [employer] VIS Given Date VIS Provided VIS Publication Date 05/21/24 Single Vaccine 21 Eligibility Eligibility Date Funding Source Not [facility] Eligible 05/21/24 Private Coding Level of Care Code Est Pt Prev Care 40-64y(56893) Diagnoses Annual physical exam Z00.00 Pure hypertriglyceridemia E78.1 Hyperlipidemia type: pure hypertriglyceridemia Mild intermittent asthma without complication J45.20 Asthma complication type: uncomplicated Asthma persistence: intermittent Asthma severity: mild Bilateral renal stones N20.0 Generalized anxiety disorder F41.1 Blood pressure elevated without history of HTN R03.0 Assessment & Plan Assessment & Plan (1) Annual physical exam: Code(s): Z00.00 - Encounter for general adult medical examination without abnormal findings Category: Medical Plan: Patient is advised to eat healthy, keep well hydrated, keep active and have adequate sleep. (2) Hyperlipidemia: Code(s): E78.5 - Hyperlipidemia, unspecified Category: Medical Qualifiers: Hyperlipidemia type: pure hypertriglyceridemia Qualified Code(s): E78.1 - Pure hyperglyceridemia Plan: Avoid fried foods, chicken skin, eggs, butter margarine, pastries and meat. Be it pork or beef they have a lot of cholesterol LDL goal of less than 130 and triglyceride of less than 150. (3) Asthma: Code(s): J45.909 - Unspecified asthma, uncomplicated Category: Medical Qualifiers: Asthma complication type: uncomplicated Asthma persistence: intermittent Asthma severity: mild Qualified Code(s): J45.20 - Mild intermittent asthma, uncomplicated Plan: Continue with albuterol inhaler as needed. And Flovent for control. Advised to rinse mouth after using. (4) Bilateral renal stones: Code(s): N20.0 - Calculus of kidney Category: Medical Plan: Keep well hydrated. (5) Generalized anxiety disorder: Code(s): F41.1 - Generalized anxiety disorder Category: Medical Plan: Stable (6) Blood pressure elevated without history of HTN: Code(s): R03.0 - Elevated blood-pressure reading, without diagnosis of hypertension Category: Medical Plan: Patient's blood pressure is elevated today. Goal of blood pressure is 130/80. Advised to monitor the blood pressure twice a day and to sit down for about 3-5 minutes before checking the blood pressure. Advised recording this for a week or getting the blood pressure taken 2 to 3 times a week and record and follow-up with the results. Meanwhile low-salt diet. Plan - Monitor blood pressure at home and document readings. - Reinforce dietary and exercise modifications for hyperlipidemia management. - Avoid fenofibrate due to adverse reaction. Continue vitamin D supplementation. - Ensure influenza vaccination is administered. - Schedule follow-up for blood pressure evaluation and review of cholesterol test results. I discussed the importance of monitoring blood pressure at home to identify a pattern or significant elevation that could warrant intervention. We reviewed risks associated with unmanaged hypertension, including potential cardiac and cerebrovascular events. The patient was advised on dietary modifications, potential need for medication if lifestyle changes are insufficient, and maintaining current healthy habits for hyperlipidemia management. Vaccine prevention strategy was addressed, with influenza vaccination planned. The patient was instructed to schedule fasting labs, with results to inform further treatment decisions. Follow-up is intended to confirm adequate blood pressure control and effective hyperlipidemia management. - Monitor blood pressure twice daily for one week, recording all results. - Continue healthy diet and regular exercise to manage cholesterol levels. - Avoid using fenofibrate; discuss alternative options if needed. - Take vitamin D as currently prescribed. - Get flu shot administered as discussed. - Schedule and complete fasting blood work. - Follow up as advised for blood pressure and cholesterol management. - Contact the office through the portal if questions arise or symptoms change. Orders: Orders Influenza [id number] Immunization Today Z23 - Encounter for immunization Testosterone, Total Today R03.0 - Elevated blood-pressure reading, without diagnosis of hypertension
[2024-05-21 17:40] VITALS: BP 146/90; PULSE 68; O2SAT 98; BMI 26.5
[2024-05-21 18:12] VITALS: BP 136/90
== END 2024-05-21 18:35 | disposition home or self-care (01) ==
PROVIDERS: PCP Internal Medicine; Visit Provider Internal Medicine
DX: Z00.00 Encounter for general adult medical examination without abnormal findings (principal); E78.1 Pure hyperglyceridemia; J45.20 Mild intermittent asthma, uncomplicated; N20.0 Calculus of kidney; F41.1 Generalized anxiety disorder; R03.0 Elevated blood-pressure reading, without diagnosis of hypertension; Z23 Encounter for immunization

== ENCOUNTER → 2024-05-21 17:22 | Outpatient (BNVA) | payer OTHER, SELFPAY | PROVIDERS: PCP Internal Medicine; Visit Provider Internal Medicine | DX: Z00.00 Encounter for general adult medical examination without abnormal findings (principal); Z23 Encounter for immunization; E78.1 Pure hyperglyceridemia; J45.20 Mild intermittent asthma, uncomplicated; N20.0 Calculus of kidney; F41.1 Generalized anxiety disorder; R03.0 Elevated blood-pressure reading, without diagnosis of hypertension | CPT/HCPCS: 90471; 90656; 96127 ==

== ENCOUNTER 2024-07-17 09:43 | Outpatient (REF) | payer OTHER, SELFPAY ==
--- OUTSIDE RECORDS SUMMARY | 2024-07-17 10:50 | XMS_ITS | Patient Health Record ---
Author Organization [facility] Address [address] [place] [address] Care Team Providers Care Ham Curer Name Role Phone Dorys Sepulveda MD Primary Care Provider David Bates [phone] ALLERGIES Allergen (clinical drug ingredient) Drug/Non Drug [...] history of colon cancer (Z80.0) Active confirmed 635329401 Problem Encounter for screening for malignant neoplasm of colon (Z12.11) Active confirmed 506309945 Problem Encounter for screening for malignant neoplasm of rectum (Z12.12) Active confirmed Screening for malignant neoplasm of rectum (376836509) Problem Preprocedural examination (Z01.818) Active confirmed 20747375 Problem RUQ abdominal pain (R10.11) Active confirmed 877178983 Problem Colon cancer screening (Z12.11) Active confirmed 648191037 Problem Diverticulosis of large intestine without perforation or abscess without bleeding (K57.30) Active confirmed Diverticul ar disease of colon (748324833) PLAN OF TREATMENT Pending Test Test Name Order Date Pathology 11/22/2022 Future Test Test Name Order Date COLONOSCOPY 10/22/2015 COLONOSCOPY 09/29/2022 Insurance Providers Payer Name Payer Address Payer Phone Subscriber Number Group Number Insured Name Patient Relationship to Insured Coverage Start Date Coverage End Date [employer] [address] [place] [address] [id number] MUKESH ROY Self - patient is the insured MEDICAL (GENERAL) HISTORY Medical History History ICD Code Seasonal allergies/asthma Kidney stones/Hematuria Denies [place],DM,CVA,renal disease Screening Colonoscopy in 2009 with remov al of a hyperplastic polyp Screening Colonoscopy in 02/2016 was nega tive Hyperlipidemia Surgical History Surgery Date(Month/Year) Vasectomy Small cyst right side of nose
[2024-07-17 13:03] LABS: MANUAL DIFF FLAG NO
[2024-07-17 13:21] LABS: Basophils Percent Auto 0.4 % (0-2); Eosinophils Absolute Auto 0.2 X10*3/uL (0.0-0.4); Eosinophils Percent Auto 2.8 % (0-4); Hematocrit 48.3 % (42.0-52.0); Imm Gran Abs Auto 0.02 X10*3/uL (0.00-0.03); Imm Gran Pct Auto 0.4 % (0.0-0.4); Lymphocytes Absolute Auto 1.8 X10*3/uL (1.2-4.9); Lymphocytes Percent Auto 33.5 % (20-40); Mean Corpuscular HGB Conc 33.1 g/dl (31.0-36.0); Mean Corpuscular Hemoglobin 29.3 pg (27.0-33.0); Mean Corpuscular Volume 88.5 fL (80.0-98.0); Mean Platelet Volume 9.1 fL (9.4-12.4); Monocytes Absolute Auto 0.4 X10*3/uL (0.1-1.2); Neutrophils Absolute Auto 2.9 x10*3/uL (2.0-8.3); Neutrophils Percent Auto 54.9 % (45-73); Platelet Count 233 X10*3/uL (160-400); Red Blood Count 5.46 X10*6/uL (4.60-5.80); Red Cell Distribution Width 12.3 % (11.0-16.0); White Blood Count 5.4 X10*3/uL (4.8-10.8)
[2024-07-17 13:37] LABS: Alanine Aminotransferase 28 U/L (0-40); Albumin Level 4.4 g/dL (3.5-5.0); Alkaline Phosphatase 76 U/L (39-117); Anion Gap 9 (12-20); Aspartate Amino Transferase 37 U/L (5-37); Bilirubin Total 0.7 mg/dL (0.0-1.0); Blood Urea Nitrogen 13 mg/dL (9-16); Calcium 9.1 mg/dL (8.4-10.2); Carbon Dioxide 28 mmol/L (22-29); Chloride 107 mmol/L (96-108); Cholesterol 235 mg/dL (<200); Estimated Glomerular Filt Rate > 60; Glucose Random 89 mg/dL (60-115); HDL Cholesterol 48 mg/dL (>40); LDL Cholesterol Calculated 152 mg/dL (<100); Sodium 140 mmol/L (135-145); Total Protein 7.7 g/dL (6.5-8.0); Triglycerides 176 mg/dL (<150)
[2024-07-17 13:56] LABS: Free T4 (Free Thyroxine) 1.03 ng/dL (0.71-1.85); Thyroid Stimulating Hormone 0.77 uIU/mL (0.32-4.0)
[2024-07-17 14:06] LABS: Folate 9.8 ng/mL (> or = 4.0); Prostate Specific Antigen Scr 2.41 ng/mL (<0.05-4.0); Vitamin B12 376 pg/mL (200-900)
[2024-07-22 12:14] LABS: Testosterone, Total 562 ng/dL (250-1100)
== END 2024-07-17 09:44 | disposition home or self-care (01) ==
LOC: HO.HMGCLDS 09:43
PROVIDERS: PCP Internal Medicine; Visit Provider Internal Medicine
DX: E78.1 Pure hyperglyceridemia (principal); E78.00 Pure hypercholesterolemia, unspecified; R03.0 Elevated blood-pressure reading, without diagnosis of hypertension; Z12.5 Encounter for screening for malignant neoplasm of prostate
CPT/HCPCS: 36415; 80053; 80061; 82607; 82746; 84153; 84403; 84439; 84443; 85025

== ENCOUNTER 2024-07-21 12:17 | Outpatient (AMB) | payer OTHER, SELFPAY ==
[2024-07-21 12:54] VITALS: BP 140/90; PULSE 75; RESP 16; TEMP 36.9; O2SAT 98; BMI 26.5
--- NOTE | 2024-07-21 12:54 | MHC.OFFWIV ---
Intake Vital Signs 07/21/24 12:54 Height 5 ft 11 in Weight 190 lb BMI 26.5 BP 140/90 H Blood Pressure Location Rt brachial Position Sitting Respiration 16 Pulse 75 Pulse Source Pulse Oximeter Temp 98.4 F Temp Source Oral Pulse Oximetry (%) 98 Oxygen Delivery Method Room Air Intake Visit Reasons: EP Rt ankle sprain Intake Note: Pt is here today for R ankle pain after fall Patient Tobacco Use Status: Never used Tobacco Allergies povidone-iodine [Betadine] Allergy (Unknown, Verified 07/21/24 12:55) Stomach Pain soap [Betadine] Allergy (Unknown, Verified 07/21/24 12:55) Stomach Pain fenofibrate Adverse Reaction (Mild, Verified 07/21/24 12:55) body and stomach pain HPI EP Rt ankle sprain HPI Details Pt took a fall today on ice and heard something pop - Rt ankle pain. HPI Comments History of Present Illness Details Patient slipped on ice and rolled ankle. Severe swelling at right ankle. He was able to bear weight but pain has been increasing and now having significant difficulty bearing weight. [facility] Medical History (Updated 07/21/24 @ 13:39 by Jitendra Johansen MD) Goiter Bilateral renal stones Generalized anxiety disorder Asthma Vitamin D deficiency Hyperlipidemia Family history of colon cancer Surgical History History of colonoscopy History of vasectomy Family History (Updated 05/21/24 @ 17:42 by BRAD Mallory) Father Colon cancer Mother No problems noted. Paternal Uncle Prostate cancer Maternal Grandfather Myocardial infarct Brother Prostate cancer Social History (Updated 05/21/24 @ 18:19 by Dorys Sepulveda MD) Housing: House Alcohol intake: current Alcohol intake frequency: holidays/special occasions only Comment: 6 pack once a month Patient Tobacco Use Status: Never used Tobacco e-Cigarette/Vaping Use: Never Used Second Hand Smoke Exposure: No service: No Current occupational status: employed Current occupation: [employer] Current occupational exposures/hazards: Yes Cognitive needs: No Hearing needs: No Vision needs: No Review of Systems Const Denies chills, Denies fatigue, Denies fever(s), Denies headache(s) and Denies weakness ENT Denies dizziness and Denies headache(s) Card Denies chest pain, Denies lightheadedness, Denies dyspnea and Denies other (Palpitations) Resp Denies cough, Denies dyspnea, Denies wheezing and Denies other ( shortness of breath) Musc Details: Right lateral ankle pain Denies numbness and Denies tingling Neuro Denies dizziness, Denies headache(s), Denies numbness, Denies tingling, Denies paresthesias and Denies weakness Psych Denies anxiety and Denies depression Endo Denies fatigue Aller/Immun Denies wheezing Physical Exam Vital Signs: Last Vital Signs Temp 98.4 F 07/21/24 12:54 Pulse 75 07/21/24 12:54 Resp 16 07/21/24 12:54 BP 140/90 H 07/21/24 12:54 Pulse Ox 98 07/21/24 12:54 Oxygen Delivery Method Room Air 07/21/24 12:54 BMI result Body Mass Index 26.5 Const General: no acute distress and well developed Nutritional Appearance: well nourished Orientation/consciousness: patient oriented x3 HEENT Head: Yes normocephalic and Yes atraumatic Eyes General: appearance normal, both eyes and all related structures Pupils: Equal, round and reactive pupils present EOM: EOMs intact bilaterally Resp Effort & Inspection: normal respiratory effort Neuro General: patient oriented x3 and gait normal Cranial nerves: Yes Equal, round and reactive pupils present Extrem Other: Severe swelling over right lateral malleolus Pain with any weight-bearing Pain on palpation over lateral malleolus and severe pain with inversion of foot. Psych Affect: normal affect Assessment & Plan Assessment & Plan (1) Sprain of right ankle: Code(s): S93.401A - Sprain of unspecified ligament of right ankle, initial encounter Plan: Review x-ray of right ankle: Small hazy lucency under tip of distal fibula but Articulating surfaces of ankle joint appear intact on x-ray. Awaiting final radiology read. Moderately severe right ankle sprain grade 2-3 Will give him an ankle brace Advised nonweightbearing times 10 days (Pt has crutches) but with early mobilization unless contraindicated by final reading of x-ray, and will refer to physical therapy Elevation and ice NSAIDs Will refer to ortho for follow-up Orders: Orders PT Evaluation and Treatment Today S93.401A - Sprain of unspecified ligament of right ankle, initial encounter XR ankle RT min 3V Today M25.571 - Pain in right ankle and joints of right foot Referrals Orthopedics Referral S93.401A - Sprain of unspecified ligament of right ankle, initial encounter Medications: New meloxicam 15 mg PO DAILY 30 days 30 tabs 2RF Coding Level of Care Code Est Pt Level 3 (89291) Diagnoses Sprain of right ankle S93.401A
== END 2024-07-21 13:54 | disposition home or self-care (01) ==
PROVIDERS: PCP Internal Medicine; Visit Provider Family Medicine
DX: S93.401A Sprain of unspecified ligament of right ankle, initial encounter (principal)

== ENCOUNTER → 2024-07-21 12:17 | Outpatient (BNVA) | payer OTHER, SELFPAY | PROVIDERS: PCP Internal Medicine ==

== ENCOUNTER 2024-07-21 13:12 | Outpatient (REF) | payer OTHER, SELFPAY ==
--- NOTE | ~2024-07-21 | XR_ITS ---
CLINICAL HISTORY: M25.571 - Pain in right ankle and joints of right foot 3 view right ankle Comparison: None Findings: Seen best on the lateral view, there is the suggestion of faint cortical disruption along the posterior margin of the distal right fibula. Significant edema. No radiopaque foreign body. IMPRESSION: There is the question of the nondisplaced distal right fibular fracture. There is significant surrounding edema. This document has been electronically signed by: Castro Diaz MD on 07/21/2024 13:58:05
== END 2024-07-21 13:13 | disposition home or self-care (01) ==
LOC: HO.HMGCX 13:12
PROVIDERS: PCP Internal Medicine; Visit Provider Family Medicine
DX: M25.571 Pain in right ankle and joints of right foot (principal)
CPT/HCPCS: 73610

== ENCOUNTER → 2024-07-21 13:15 | Outpatient (BNV) | payer OTHER, SELFPAY | PROVIDERS: PCP Internal Medicine; Visit Provider Radiology Vascular & Interventional Radiology | DX: M25.571 Pain in right ankle and joints of right foot (principal) | CPT/HCPCS: 73610 ==

== ENCOUNTER 2024-08-13 17:20 | Outpatient (AMB) | payer OTHER, SELFPAY ==
--- NOTE | 2024-08-13 17:21 | A.OFFPC_ITS ---
Vital Signs 08/13/24 17:22 Height 5 ft 11 in Weight 198 lb BMI 27.6 BP 134/98 H Blood Pressure Location Lt brachial Position Sitting Pulse 86 Pulse Source Pulse Oximeter Pulse Oximetry (%) 97 Oxygen Delivery Method Room Air Intake Visit Reasons: Blood pressure Track Coach Required: No Accompanied by: Self / Same As Patient Allergies povidone-iodine [Betadine] Allergy (Unknown, Verified 08/13/24 17:26) Stomach Pain soap [Betadine] Allergy (Unknown, Verified 08/13/24 17:26) Stomach Pain fenofibrate Adverse Reaction (Mild, Verified 08/13/24 17:26) body and stomach pain Medication List - Last Reconciled 08/13/24 by Dorys Sepulveda MD albuterol sulfate 90 mcg/actuation (ProAir HFA) 2 puffs inhalation Q4H PRN cholecalciferol (vitamin D3) 50 mcg PO DAILY levocetirizine (Xyzal) 5 mg PO DAILY lisinopril 5 mg PO DAILY naproxen (Naprosyn) 500 mg PO BID PRN red yeast rice 600 mg PO DAILY sour diop extract (Tart Diop Extract) mg PO Tobacco use date assessed: 08/13/24 Dental Screening Dental Screen Date: 08/13/24 Did you have a dental visit in the last 12 months?: Yes Did you have a dental problem in the last 6 months where you did not have access to dental care?: No Was dental information given to patient?: Patient has dentist [facility] Medical History (Updated 08/13/24 @ 17:48 by Dorys Sepulveda MD) Ankle pain, right Sprain of right ankle Goiter Bilateral renal stones Generalized anxiety disorder Asthma Vitamin D deficiency Hyperlipidemia Family history of colon cancer Surgical History History of colonoscopy History of vasectomy Family History Father Colon cancer Mother No problems noted. Paternal Uncle Prostate cancer Maternal Grandfather Myocardial infarct Brother Prostate cancer Social History Housing: House Alcohol intake: current Alcohol intake frequency: holidays/special occasions only Comment: 6 pack once a month Patient Tobacco Use Status: Never used Tobacco e-Cigarette/Vaping Use: Never Used Second Hand Smoke Exposure: No service: No Current occupational status: employed Current occupation: Medicine in [employer] Current occupational exposures/hazards: Yes Cognitive needs: No Hearing needs: No Vision needs: No Questionnaire PHQ-9 Over the last 2 weeks, how often have you been bothered by any of the following problems? 1. Little interest or pleasure in doing things: not at all 2. Feeling down, depressed, or hopeless: not at all 3. Trouble falling or staying asleep, or sleeping too much: not at all 4. Feeling tired or having little energy: not at all 5. Poor appetite or overeating: not at all 6. Feeling bad about yourself - or that you are a failure or have let yourself or your family down: not at all 7. Trouble concentrating on things, such as reading the newspaper or watching television: not at all 8. Moving or speaking so slowly that other people could have noticed. Or the opposite - being so fidgety or restless that you have been moving around a lot more than usual: not at all 9. Thoughts that you would be better off or of hurting yourself in some way: not at all Total score: 0 Depression Screening Interpretation: Negative Depression Screening Done: Yes Source: Developed by Drs. David Diaz, Renetta Bateman, Jose Chavez and colleagues, with an educational césar from [employer]. Thrive Questionnaire Date Thrive assessed: 08/13/24 I am a: Patient What is your living situation today?: I choose not to answer this question Within the past 12 months, did the food you bought not last and you didn't have the money to get more?: I choose not to answer this question Within the past 12 months, did you worry whether your food would run out before you got money to buy more?: I choose not to answer this question Do you have trouble paying for medicines?: I choose not to answer this question Do you have trouble getting transportation to medical appointments?: I choose not to answer this question Do you have trouble paying your heating and electricity bill?: I choose not to answer this question Do you have trouble taking care of your child, family member or friend?: I choose not to answer this question Do you have trouble with day-to-day activities such as bathing, preparing meals, shopping, managing finances, etc.?: I choose not to answer this question Are you currently unemployed and looking for a job?: I choose not to answer this question Are you interested in more education?: I choose not to answer this question Please select the resources that you would like help with: None Currently or been in a relationship where the following occur: I choose not to answer THRIVE Score: 0 AUDIT C Alcohol Use Questionnaire (AUDIT-C) 1. How often do you have a drink containing alcohol?: Monthly or less 2. How many drinks containing alcohol do you have on a typical day when you are drinking?: 1 or 2 3. How often do you have six or more drinks on one occasion?: Less than monthly Total Score: 2 JUAN-7 AMB Questionnaire JUAN-7 Date JUAN - 7 assessed: 11/30/23 Source: Developed by Drs. David Diaz, Renetta Bateman, Jose Chavez and colleagues, with an educational césar from [employer]. Physical exam (Primary Care) Vital Signs: Last Vital Signs Pulse 86 08/13/24 17:22 BP 134/98 H 08/13/24 17:22 Pulse Ox 97 08/13/24 17:22 Oxygen Delivery Method Room Air 08/13/24 17:22 BMI result Body Mass Index 27.6 Tobacco/Smoking Status: Tobacco use Status Tobacco use date assessed 08/13/24 08/13/24 17:28 Patient Tobacco Use Status Never used Tobacco 08/13/24 17:28 e-Cigarette/Vaping Use Never Used 08/13/24 17:28 PHQ-9: PHQ-9 Score PHQ-9: Total score 0 08/13/24 17:34 Depression Screening Interpretation: Negative Thrive Assessment: Date of Thrive Assessment Date Thrive assessed 08/13/24 08/13/24 17:28 Currently or been in a relationship where the following occur: I choose not to answer Const General: alert; No acute distress Eyes Conjunctivae: conjunctivae normal Resp Auscultation: clear to auscultation bilaterally Cardio Rate: regular rate Rhythm: regular rhythm GI Inspection: Yes normal to inspection Coding Level of Care Code Est Pt Level 4 (00931) Diagnoses Closed right ankle fracture S82.891A Blood pressure elevated without history of HTN R03.0 Pure hypertriglyceridemia E78.1 Hyperlipidemia type: pure hypertriglyceridemia Overweight (BMI 25.0-29.9) E66.3 Hypertension I10 Assessment & Plan Assessment & Plan (1) Closed right ankle fracture: Comment: July 2024There is the question of the nondisplaced distal right fibular fracture. There is significant surrounding edema. Code(s): S82.891A - Other fracture of right lower leg, initial encounter for closed fracture Category: Medical Plan: Patient was referred to orthopedics but patient has canceled (2) Blood pressure elevated without history of HTN: Code(s): R03.0 - Elevated blood-pressure reading, without diagnosis of hypertension Category: Medical Plan: Blood pressure remains to be elevated (3) Hyperlipidemia: Code(s): E78.5 - Hyperlipidemia, unspecified Category: Medical Qualifiers: Hyperlipidemia type: pure hypertriglyceridemia Qualified Code(s): E78.1 - Pure hyperglyceridemia Plan: Avoid fried foods, chicken skin, eggs, butter margarine, pastries and meat. Be it pork or beef they have a lot of cholesterol LDL goal of less than 130 and triglyceride of less than 150. (4) Overweight (BMI 25.0-29.9): Code(s): E66.3 - Overweight Category: Medical Plan: Diet and exercise (5) Hypertension: Code(s): I10 - Essential (primary) hypertension Category: Medical Plan History of Present Illness The patient is a 54-year-old male presenting with elevated blood pressure and a recent right ankle injury. He has a medical history significant for hypercholesterolemia, currently not well-managed, asthma, generalized anxiety disorder, and obstructive sleep apnea. In May 2024, increased blood pressure readings were noted. His attempt to manage dyslipidemia included fenofibrate, discontinued due to adverse effects, with elevated cholesterol measurements on the latest labs. In July 2024, he sought care for right ankle pain. An urgent care X-ray initially suggested a nondisplaced distal fibular fracture, later refuted by orthopedic follow-up. The patient's symptoms have notably improved since. Health Maintenance - Blood pressure monitoring and management initiated with lisinopril. - Dietary recommendations focusing on reducing cholesterol and sodium intake. - Cholesterol monitoring with follow-up laboratory evaluation recommended in three months. Social History - Reports decreased physical activity levels due to recent ankle injury. - Modified diet with unsalted nuts and reduced intake of processed foods. - Alcohol and tobacco use not discussed. Review of Systems - Cardiovascular: Reports ongoing elevated blood pressure. - Musculoskeletal: Reports right ankle pain, improving with reduced swelling. - Respiratory: Denies recent use of albuterol inhaler. Physical Exam Results - Labs: - Total cholesterol: 235 mg/dL - LDL: 152 mg/dL - Triglycerides: 176 mg/dL - PSA: Normal - Tests and Diagnostics: - Nondisplaced distal right fibular fracture initially suggested, later ruled out by orthopedics. Plan The patient is to commence lisinopril for hypertension, while monitoring for adverse reactions like leg cramps. Blood pressure and lipid levels will be reassessed in three months. Dietary modifications for sodium and cholesterol are recommended along with weight management strategies. Supportive care for the right ankle includes continued use of a brace and potential topical anti- inflammatory application. No additional orthopedic follow-up is currently necessary while symptom improvement is noted. Ongoing allergy management to continue with medication adherence emphasized. Patient was informed and verbally consented to the use of an ambient scribe for clinic note documentation during this visit. Discussion Notes During our discussion, I addressed the management of the patient's hypertension and lifestyle modifications required to control dyslipidemia. We discussed starting lisinopril, and I advised on its potential side effects and the necessity of monitoring. The topical anti-inflammatory treatment was suggested for his ankle pain, alongside [id number] activities to aid recovery. I emphasized consistent dietary adjustments for cholesterol management, highlighting the need for reevaluation in three months. We touched upon allergy medication adherence, and I ensured the patient understood the importance of regular intake. Follow-up guidance and the opportunity to seek care sooner if symptoms did not improve or worsened were provided. Patient Instructions - Begin lisinopril as prescribed and monitor for any side effects. - Follow a low-sodium, heart-healthy diet and maintain weight management. - Continue ankle care with limited weight-bearing activities and use of a brace. - Apply topical anti-inflammatory gel three times daily if needed. - Adhere strictly to prescribed allergy medications. - Schedule a follow-up in three months to reevaluate the management plan. - Contact the office if new symptoms arise or existing symptoms worsen. Orders: Orders Comprehensive Met. Panel 3 Months E78.1 - Pure hyperglyceridemia Lipid Panel 3 Months E78.00 - Pure hypercholesterolemia, unspecified, E78.1 - Pure hyperglyceridemia Hemoglobin A1c 3 Months E78.1 - Pure hyperglyceridemia Medications: New naproxen (Naprosyn) 500 mg PO BID PRN 30 tabs 0RF pain S82.891A - Other fracture of right lower leg, initial encounter for closed fracture lisinopril 5 mg PO DAILY 30 tabs 3RF I10 - Essential (primary) hypertension Changed From albuterol sulfate 90 mcg/actuation (ProAir HFA) 2 puffs inhalation Q4H PRN 8.5 grams 0RF bronchospasm J45.909 - Unspecified asthma, uncomplicated To albuterol sulfate 90 mcg/actuation 2 puffs inhalation Q4H PRN 8.5 grams 0RF bronchospasm J45.909 - Unspecified asthma, uncomplicated Discontinued meloxicam Discontinued Reason: Doctor's Order 15 mg PO DAILY 30 days 30 tabs 2RF
[2024-08-13 17:22] VITALS: BP 134/98; PULSE 86; O2SAT 97; BMI 27.6
--- OUTSIDE RECORDS SUMMARY | 2024-08-13 18:26 | XMS_ITS | Patient Health Record ---
Author Organization [facility] Address [address] [place] [address] Care Team Providers Care Moisture Conditioner Operator Name Role Phone Dorys Sepulveda MD Primary Care Provider David Bates [phone] Allergies Allergen (clinical drug ingredient) Drug/Non Drug Allergy documented on EMR Reaction Allergy Type Onset Date Status povidone-iodine benadyne (uncoded) Unknown Allergy Active Reason For Referral No Information Medications Medication SIG (Take, Route, Frequency, Duration) Notes Start Date End Date Status Fenofibrate Not-Taki ng Atorvastatin Calcium 80 MG 1 tablet Orally Once a day for 30 day(s) Active Allergy Relief prn Activ e Aspirin Not-Taking Multivitamin Active Vitamin D Active Triple Flex Active Immunizations Vaccine Route Administration Date Status Comme nts Influenza Unknown 03/23/2022 Administered Problems Problem Type SNOMED Code ICD Code Onset Dates Problem Status W/U Status Risk Notes Problem 805465931 Colon cancer screening (Z12.11) Active confirmed Problem 890154003 Encounter for screening for malignant neoplasm of colon (Z12.11) Active confirmed Problem Diverticular disease of colon (323028403) Diverticulosis of large intestine without perforation or abscess without bleeding (K57.30) Active confirmed Problem Screening for malignant neoplasm of rectum (904273514) Encounter for screening for malignant neoplasm of rectum (Z12.12) Active confirmed Problem 82720485 Preprocedural examination (Z01.818) Active confirmed Problem 350263027 Family history o f colon cancer (Z80.0) Active confirmed Problem 561097261 RUQ abdominal pa in (R10.11) Active confirmed Plan Of Treatment Pending Test Test Name Order Date Pathology 11/22/2022 Future Test Test Name Order Date COLONOSCOPY 10/22/2015 COLONOSCOPY 09/29/2022 Insurance Providers Payer Name Payer Address Payer Phone Subscriber Number Group Number Insured Name Patient Relationship to Insured Coverage Start Date Coverage End Date [employer] [address] [place] [address] [id number] [id number] ROY Self - patient is the insured Medical (General) History Medical History History ICD Code Seasonal allergies/asthma Kidney stones/Hematuria Denies [place],DM,CVA,renal disease Screening Colonoscopy in 2009 with remov al of a hyperplastic polyp Screening Colonoscopy in 02/2016 was nega tive Hyperlipidemia Surgical History Surgery Date(Month/Year) Vasectomy Small cyst right side of nose
== END 2024-08-13 18:05 | disposition home or self-care (01) ==
PROVIDERS: PCP Internal Medicine; Visit Provider Internal Medicine
DX: S82.891A Other fracture of right lower leg, initial encounter for closed fracture (principal); R03.0 Elevated blood-pressure reading, without diagnosis of hypertension; E78.1 Pure hyperglyceridemia; E66.3 Overweight; I10 Essential (primary) hypertension

== ENCOUNTER → 2024-08-13 17:20 | Outpatient (BNVA) | payer OTHER, SELFPAY | PROVIDERS: PCP Internal Medicine; Visit Provider Internal Medicine ==

== ENCOUNTER 2024-11-23 08:44 | Outpatient (REF) | payer OTHER, SELFPAY ==
--- OUTSIDE RECORDS SUMMARY | 2024-11-23 08:48 | XMS_ITS | Patient Health Record ---
Author Organization [facility] Address [address] [place] [address] Care Team Providers Care Communication Clerk Name Role Phone Dorys Sepulveda MD Primary Care Provider David Bates [phone] Allergies Allergen (clinical drug ingredient) Drug/Non Drug [...] Problem Status W/U Status Risk Notes Problem 488793431 Colon cancer screening (Z12.11) Active confirmed Problem 889829451 Encounter for screening for malignant neoplasm of colon (Z12.11) Active confirmed Problem Diverticular disease of colon (842022856) Diverticulosis of large intestine without perforation or abscess without bleeding (K57.30) Active confirmed Problem Screening for malignant neoplasm of rectum (585749262) Encounter for screening for malignant neoplasm of rectum (Z12.12) Active confirmed Problem 32363095 Preprocedural examination (Z01.818) Active confirmed Problem 868272562 Family history o f colon cancer (Z80.0) Active confirmed Problem 674053091 RUQ abdominal pa in (R10.11) Active confirmed Plan Of Treatment Pending Test Test Name Order Date Pathology 11/22/2022 Future Test Test Name Order Date COLONOSCOPY 10/22/2015 COLONOSCOPY 09/29/2022 Insurance Providers Payer Name Payer Address Payer Phone Subscriber Number Group Number Insured Name Patient Relationship to Insured Coverage Start Date Coverage End Date [employer] [address] [place] [address] [id number] ROY Self - patient is the insured Medical (General) History Medical History History ICD Code Seasonal allergies/asthma Kidney stones/Hematuria Denies [place],DM,CVA,renal disease Screening Colonoscopy in 2009 with remov al of a hyperplastic polyp Screening Colonoscopy in 02/2016 was nega tive Hyperlipidemia Surgical History Surgery Date(Month/Year) Vasectomy Small cyst right side of nose
[2024-11-23 10:34] LABS: Alanine Aminotransferase 22 U/L (0-40); Albumin Level 4.4 g/dL (3.5-5.0); Alkaline Phosphatase 66 U/L (39-117); Anion Gap 10 (12-20); Aspartate Amino Transferase 31 U/L (5-37); Bilirubin Total 0.7 mg/dL (0.0-1.0); Blood Urea Nitrogen 15 mg/dL (9-16); Calcium 9.2 mg/dL (8.4-10.2); Carbon Dioxide 30 mmol/L (22-29); Chloride 105 mmol/L (96-108); Cholesterol 224 mg/dL (<200); Estimated Glomerular Filt Rate > 60; Glucose Random 90 mg/dL (60-115); HDL Cholesterol 37 mg/dL (>40); LDL Cholesterol Calculated 141 mg/dL (<100); Potassium 3.6 mmol/L (3.3-5.1); Sodium 141 mmol/L (135-145); Total Protein 6.8 g/dL (6.5-8.0); Triglycerides 231 mg/dL (<150)
[2024-11-23 10:55] LABS: Estimated Average Glucose 103 mg/dL; Hemoglobin A1c % 5.2 % (<6.0)
== END 2024-11-23 08:45 | disposition home or self-care (01) ==
LOC: HO.HMGCLDS 08:44
PROVIDERS: PCP Internal Medicine; Visit Provider Internal Medicine
DX: E78.1 Pure hyperglyceridemia (principal); E78.00 Pure hypercholesterolemia, unspecified
CPT/HCPCS: 36415; 80053; 80061; 83036

== ENCOUNTER 2024-11-26 17:17 | Outpatient (AMB) | payer OTHER, SELFPAY ==
[2024-11-26 17:18] VITALS: BP 118/68; PULSE 69; O2SAT 98; BMI 25.8
--- NOTE | 2024-11-26 17:18 | A.OFFPC_ITS ---
Vital Signs 11/26/24 17:18 Height 5 ft 11 in Weight 185 lb BMI 25.8 BP 118/68 Blood Pressure Location Lt brachial Position Sitting Pulse 69 Pulse Source Pulse Oximeter Pulse Oximetry (%) 98 Oxygen Delivery Method Room Air Intake Visit Reasons: hypercholesterol Allergies povidone-iodine (Betadine) Allergy (Unknown, Verified 11/26/24 17:18) Stomach Pain soap (Betadine) Allergy (Unknown, Verified 11/26/24 17:18) Stomach Pain fenofibrate Adverse Reaction (Mild, Verified 11/26/24 17:18) body and stomach pain Tobacco use date assessed: 08/13/24 Dental Screening Dental Screen Date: 08/13/24 [facility] Medical History (Updated 11/26/24 @ 17:27 by Dorys Sepulveda MD) Hyperlipidemia Hypertriglyceridemia Ankle pain, right Sprain of right ankle Goiter Bilateral renal stones Generalized anxiety disorder Asthma Vitamin D deficiency Family history of colon cancer Surgical History History of colonoscopy History of vasectomy Family History Father Colon cancer Mother No problems noted. Paternal Uncle Prostate cancer Maternal Grandfather Myocardial infarct Brother Prostate cancer Social History Housing: House Alcohol intake: current Alcohol intake frequency: holidays/special occasions only Comment: 6 pack once a month Patient Tobacco Use Status: Never used Tobacco Tobacco use type: Cigarette e-Cigarette/Vaping Use: Never Used Second Hand Smoke Exposure: No service: No Current occupational status: employed Current occupation: [employer] Current occupational exposures/hazards: Yes Cognitive needs: No Hearing needs: No Vision needs: No Questionnaire PHQ-9 Over the last 2 weeks, how often have you been bothered by any of the following problems? 1. Little interest or pleasure in doing things: not at all 2. Feeling down, depressed, or hopeless: not at all 3. Trouble falling or staying asleep, or sleeping too much: not at all 4. Feeling tired or having little energy: not at all 5. Poor appetite or overeating: not at all 6. Feeling bad about yourself - or that you are a failure or have let yourself or your family down: not at all 7. Trouble concentrating on things, such as reading the newspaper or watching television: not at all 8. Moving or speaking so slowly that other people could have noticed. Or the opposite - being so fidgety or restless that you have been moving around a lot more than usual: not at all 9. Thoughts that you would be better off or of hurting yourself in some way: not at all Total score: 0 Depression Screening Interpretation: Negative Depression Screening Done: Yes Source: Developed by Drs. David Diaz, Renetta Bateman, Jose Chavez and colleagues, with an educational césar from [employer]. Thrive Questionnaire Date Thrive assessed: 08/13/24 I am a: Patient What is your living situation today?: I have a steady place to live Within the past 12 months, did the food you bought not last and you didn't have the money to get more?: Never true Within the past 12 months, did you worry whether your food would run out before you got money to buy more?: I choose not to answer this question Do you have trouble paying for medicines?: No Do you have trouble getting transportation to medical appointments?: No Do you have trouble paying your heating and electricity bill?: No Do you have trouble taking care of your child, family member or friend?: No Do you have trouble with day-to-day activities such as bathing, preparing meals, shopping, managing finances, etc.?: No Are you currently unemployed and looking for a job?: No Are you interested in more education?: No Please select the resources that you would like help with: None Currently or been in a relationship where the following occur: No concerns reported THRIVE Score: 0 AUDIT C Alcohol Use Questionnaire (AUDIT-C) 1. How often do you have a drink containing alcohol?: 2-4 times a month 2. How many drinks containing alcohol do you have on a typical day when you are drinking?: 1 or 2 3. How often do you have six or more drinks on one occasion?: Never Total Score: 2 JUAN-7 AMB Questionnaire JUAN-7 Date JUAN - 7 assessed: 11/26/24 Feeling nervous, anxious, or on edge: 0 = Not at all Not being able to stop or control worryin = Not at all Worrying too much about different things: 0 = Not at all Trouble relaxin = Not at all Being so restless that it is hard to sit still: 0 = Not at all Becoming easily annoyed or irritable: 0 = Not at all Feeling afraid as if something awful might happen: 0 = Not at all Total JUAN-7 score (0-4 normal; 5-9 mild; 10-14 moderate; 15-21 severe): 0 Source: Developed by Drs. David Diaz, Renetta Bateman, Jose Chavez and colleagues, with an educational césar from [employer]. Physical exam (Primary Care) Vital Signs: Last Vital Signs Pulse 69 11/26/24 17:18 BP 118/68 11/26/24 17:18 Pulse Ox 98 11/26/24 17:18 Oxygen Delivery Method Room Air 11/26/24 17:18 BMI result Body Mass Index 25.8 Tobacco/Smoking Status: Tobacco use Status Tobacco use date assessed 08/13/24 11/26/24 17:22 Patient Tobacco Use Status Never used Tobacco 11/26/24 17:22 Tobacco use type Cigarette 11/26/24 17:22 e-Cigarette/Vaping Use Never Used 11/26/24 17:22 PHQ-9: PHQ-9 Score PHQ-9: Total score 0 11/26/24 17:22 Depression Screening Interpretation: Negative Thrive Assessment: Date of Thrive Assessment Date Thrive assessed 08/13/24 11/26/24 17:22 Currently or been in a relationship where the following occur: No concerns reported Const General: alert; No acute distress Eyes Conjunctivae: conjunctivae normal Resp Auscultation: clear to auscultation bilaterally Cardio Rate: regular rate Rhythm: regular rhythm GI Inspection: Yes normal to inspection Extrem General: Yes normal to inspection and No edema Coding Level of Care Code Est Pt Level 4 (55956) Diagnoses Hypertension I10 Hypercholesterolemia E78.00 Mild intermittent asthma without complication J45.20 Asthma severity: mild Asthma persistence: intermittent Asthma complication type: uncomplicated Assessment & Plan Assessment & Plan (1) Hypertension: Code(s): I10 - Essential (primary) hypertension Category: Medical Plan: Continue with blood pressure medication. Decrease salt intake and exercise on lisinopril 10 mg once a day (2) Hypercholesterolemia: Code(s): E78.00 - Pure hypercholesterolemia, unspecified Category: Medical Plan: Avoid fried foods, chicken skin, eggs, butter margarine, pastries and meat. Be it pork or beef they have a lot of cholesterol LDL goal of less than 130 and triglyceride of less than 150. (3) Asthma: Code(s): J45.909 - Unspecified asthma, uncomplicated Category: Medical Qualifiers: Asthma severity: mild Asthma persistence: intermittent Asthma complication type: uncomplicated Qualified Code(s): J45.20 - Mild intermittent asthma, uncomplicated Plan: Continue with inhalers as needed Plan History of Present Illness The patient is a 54-year-old male presenting for a follow-up visit to manage chronic conditions and review recent laboratory results. The patient has a history of hypertriglyceridemia, with recent lab results showing elevated cholesterol levels, including a total cholesterol of 224 mg/dL, LDL of 141 mg/dL, and triglycerides of 231 mg/dL. Despite a 13-pound weight loss, the cholesterol levels remain elevated, which is attributed to genetic factors. The patient also has a history of asthma, managed with inhalers as needed. He reports being active, engaging in various physical activities around the house, despite a recent ankle sprain. The patient has generalized anxiety disorder, nephrolithiasis, obstructive sleep apnea, and hypertension, which is currently managed with lisinopril 10 mg daily. His blood pressure is well-controlled, with recent readings showing improvement. Preventative care measures include an up-to-date colonoscopy as of December 2022. Health Maintenance - Colonoscopy up to date as of December 2022 - Blood pressure management with lisinopril 10 mg daily Social History - Reports being active with various physical activities around the house, including chores and maintenance tasks. - Recent dietary intake includes turkey, chicken, and occasional fast food. Review of Systems - Cardiovascular: Denies chest pain, reports well-controlled blood pressure. - Respiratory: Reports asthma managed with inhalers as needed, denies recent exacerbations. - Musculoskeletal: Reports recent ankle sprain, denies use of pain medication. Physical Exam Results - Labs: Total cholesterol 224 mg/dL, LDL 141 mg/dL, triglycerides 231 mg/dL. - Labs: Normal blood count, electrolytes, renal function, blood sugar, and liver function. Plan The management plan for hypertriglyceridemia includes considering medication options, although the patient is advised to discuss with family before starting any new medication. The patient is encouraged to continue weight management efforts, as weight loss has been beneficial, though cholesterol levels remain elevated due to genetic factors. For asthma, the patient is advised to continue using inhalers as needed to manage symptoms. Blood pressure management will continue with lisinopril 10 mg daily, as current readings are satisfactory. Preventative care includes maintaining up-to-date screenings, such as colonoscopy, and scheduling follow-up blood work in six months. Patient was informed and verbally consented to the use of an ambient scribe for clinic note documentation during this visit. Discussion Notes During the visit, I discussed the patient's elevated cholesterol levels and the potential need for medication to manage hypertriglyceridemia, advising him to consult with his family before making a decision. We reviewed the importance of continued weight management and the genetic factors contributing to his cho lesterol levels. I advised the patient to continue using inhalers as needed for asthma and to maintain his current blood pressure regimen with lisinopril 10 mg daily. We also discussed the importance of staying up-to-date with preventative screenings, such as colonoscopy, and planned for follow-up blood work in six months. Patient Instructions - Discuss potential cholesterol medication with family before starting. - Continue weight management efforts and monitor diet. - Use inhalers as needed for asthma symptoms. - Continue taking lisinopril 10 mg daily for blood pressure management. - Schedule follow-up blood work in six months. Orders: Orders Complete Blood Count Auto Diff 6 Months I10 - Essential (primary) hypertension Free T4 (Free Thyroxine) 6 Months I10 - Essential (primary) hypertension Prostate Specific Antigen Scr 6 Months I10 - Essential (primary) hypertension Hemoglobin A1c 6 Months I10 - Essential (primary) hypertension Comprehensive Met. Panel 6 Months I10 - Essential (primary) hypertension Thyroid Stimulating Hormone 6 Months I10 - Essential (primary) hypertension Lipid Panel 6 Months E78.00 - Pure hypercholesterolemia, unspecified, I10 - Essential (primary) hypertension Vitamin B12 and Folate 6 Months I10 - Essential (primary) hypertension
--- OUTSIDE RECORDS SUMMARY | 2024-11-26 17:49 | XMS_ITS | Patient Health Record ---
Author Organization [facility] Address [address] [place] [address] Care Team Providers Care Confectionery Maker Name Role Phone Dorys Sepulveda MD Primary Care Provider David Bates [phone] Allergies Allergen (clinical drug ingredient) Drug/Non Drug [...] Problem Status W/U Status Risk Notes Problem [id number] Colon cancer screening (Z12.11) Active confirmed Problem [id number] Encounter for screening for malignant neoplasm of colon (Z12.11) Active confirmed Problem Diverticulosis o f large intestine without perforation or abscess without bleeding (K57.30) Active confirmed Problem Screening for malignant neoplasm of rectum (935354630) Encounter for screening for malignant neoplasm of rectum (Z12.12) Active confirmed Problem 09157578 Preprocedural examination (Z01.818) Active confirmed Problem 286312403 Family history o f colon cancer (Z80.0) Active confirmed Problem [id number] RUQ abdominal pa in (R10.11) Active confirmed Plan Of Treatment Pending Test Test Name Order Date Pathology 11/22/2022 Future Test Test Name Order Date COLONOSCOPY 10/22/2015 COLONOSCOPY 09/29/2022 Insurance Providers Payer Name Payer Address Payer Phone Subscriber Number Group Number Insured Name Patient Relationship to Insured Coverage Start Date Coverage End Date [employer] [facility] INDEMN[facility] [address] [place] [address] [id number] MUKESH ROY Self - patient is the insured Medical (General) History Medical History History ICD Code Seasonal allergies/asthma Kidney stones/Hematuria Denies LA,DM,CVA,renal disease Screening Colonoscopy in 2009 with remov al of a hyperplastic polyp Screening Colonoscopy in 02/2016 was nega tive Hyperlipidemia Surgical History Surgery Date(Month/Year) Vasectomy Small cyst right side of nose
== END 2024-11-26 17:39 | disposition home or self-care (01) ==
LOC: HO.HMCH 17:18
PROVIDERS: PCP Internal Medicine; Visit Provider Internal Medicine
DX: I10 Essential (primary) hypertension (principal); E78.00 Pure hypercholesterolemia, unspecified; J45.20 Mild intermittent asthma, uncomplicated

== ENCOUNTER → 2024-11-26 17:17 | Outpatient (BNVA) | payer OTHER, SELFPAY | PROVIDERS: PCP Internal Medicine; Visit Provider Internal Medicine | DX: Z13.89 Encounter for screening for other disorder (principal) ==

== ENCOUNTER → 2025-01-28 10:11 | Outpatient (BNVA) | payer OTHER, SELFPAY | PROVIDERS: PCP Internal Medicine | DX: S39.012A Strain of muscle, fascia and tendon of lower back, initial encounter (principal); X50.1XXA Overexertion from prolonged static or awkward postures, initial encounter | CPT/HCPCS: 72100; 99203 ==

== ENCOUNTER → 2025-02-11 13:13 | Outpatient (BNVA) | payer OTHER, SELFPAY | PROVIDERS: PCP Internal Medicine; Visit Provider Physician Assistant Medical | DX: S39.012D Strain of muscle, fascia and tendon of lower back, subsequent encounter (principal); W17.89XD Other fall from one level to another, subsequent encounter | CPT/HCPCS: 99213 ==

== ENCOUNTER → 2025-03-01 13:09 | Outpatient (BNVA) | payer OTHER, SELFPAY | PROVIDERS: PCP Internal Medicine; Visit Provider Physician Assistant Medical | DX: S39.012D Strain of muscle, fascia and tendon of lower back, subsequent encounter (principal); X50.1XXD Overexertion from prolonged static or awkward postures, subsequent encounter | CPT/HCPCS: 99213 ==

== ENCOUNTER 2025-03-21 09:00 | Outpatient (RCR) | payer OTHER, SELFPAY ==
--- NOTE | 2025-02-20 10:45 | MHC.PT.EP ---
[facility] [place] Office [place] Office [place] Office [address] [phone] F: [phone] F: [phone] F: [phone] F: [phone] Physical Therapy Plan of Care Date of Evaluation: 02/20/25 Date of Surgery: Diagnosis: lumbar sprain, spasm. Assessment: Patient is a 54 year old R handed male who reports to physical therapy with a diagnosis of lumbar strain/spasm. He works with daily job demands including [employer] employee. Past medical history includes asthma and HTN. Current impairments include pain, ROM, strength, posture and functional mobility. Functional limitations include ability to stand, walk, sit, twist, turn, bend and lift. Pt is motivated and has good rehab potential to progress with skilled physical therapy towards prior level of function by addressing impairments and functional limitations and pursuing goals. Frequency and Duration: The patient will be seen 2x/week for 5 weeks Short Term Goals: I with HEP - 2 weeks AROM rotaiton 100% and pain free - 3 weeks Flex/ext 75% and pain free - 3 weeks 90/90 lacking 30 or less - 3 weeks Custodial Goals: Oswestry 2% or less - 5 weeks TTP absent - 5 weeks return to PLOF with max pain of 2/10 - 5 weeks Treatment Plan: Modalities to reduce pain, spasms and effusion. Manual therapy to restore motion and function. Therapeutic exercise to improve strength and flexibility. Neuromuscular re-education for posture and balance. Therapeutic activities to return to functional activities of daily living. Electronically signed by: Pool Webster PT Please sign and return to therapist. Thank you for your referral.
--- NOTE | 2025-04-23 13:26 | MHC.PT.DC ---
[facility] [place] Office [place] Office [place] Office [address] Denisha Berk[address] [phone] F: [phone] F: [phone] F: [phone] F: [phone] Physical Therapy Discharge Report Diagnosis: lumbar sprain, spasm. Date of Surgery: Date of Evaluation: 02/20/25 Date of Discharge: 03/24/25 Treatments to Date: 10 Cancellations to Date: No Shows to Date: Discharge Status: Improved Function Independent with HEP Discharge Summary: 03/21/25: I with HEP. AROM rotation 100% and pain free. Flex/ext 75% and pain free. lacking 26 b/l. Oswestry 6%. TTP absent. Pt compliant and motivated throughout. Appropriate to d/c to HEP at this time. 03/19/25: pt has been feeling better overall. compliant with HEP and good carryover. appropriate to d/c to HEP NV. I with HEP. AROM 100% and pain free. lacking 28 b/l. TTP absent. 03/14/25: pt has been feeling better overall and progressing with strength. no adverse reactions overall with skilled PT. we will continue to progress as tolerated. 03/12/25: pt has been progressing well overall with skilled PT. min s/s. progressing strength. 03/07/25: pt has been progressing well. s/s minimal. no adverse reactions. added flexion stretching cautiously. 03/05/25: pt progressing well on current program. No adverse reactions. continue to progress as tolerated. 03/01/25: progressing well so far. added hip and core strength with core focus. continue to progress as tolerated. 02/26/25: pt progressing well. already with symptomatic improvement. progressed pain free stretching. to update HEP NV. Patient is a 54 year old R handed male who reports to physical therapy with a diagnosis of lumbar strain/spasm. He works with daily job demands including [employer] employee. Past medical history includes asthma and HTN. Current impairments include pain, ROM, strength, posture and functional mobility. Functional limitations include ability to stand, walk, sit, twist, turn, bend and lift. Pt is motivated and has good rehab potential to progress with skilled physical therapy towards prior level of function by addressing impairments and functional limitations and pursuing goals. Electronically signed by: Pool Webster PT Please sign and return to therapist. Thank you for your referral.
== END 2025-04-23 13:27 | disposition home or self-care (01) ==
LOC: HO.PTCHIC 09:00
PROVIDERS: PCP Internal Medicine; Visit Provider Physician Assistant Medical
DX: S39.012D Strain of muscle, fascia and tendon of lower back, subsequent encounter (principal); M62.830 Muscle spasm of back
CPT/HCPCS: 97110; 97140; 97161

== ENCOUNTER → 2025-03-22 13:09 | Outpatient (BNVA) | payer OTHER, SELFPAY | PROVIDERS: PCP Internal Medicine; Visit Provider Physician Assistant Medical | DX: S39.012D Strain of muscle, fascia and tendon of lower back, subsequent encounter (principal); X50.1XXD Overexertion from prolonged static or awkward postures, subsequent encounter | CPT/HCPCS: 99213 ==

== ENCOUNTER → 2025-04-05 12:55 | Outpatient (BNVA) | payer OTHER, SELFPAY | PROVIDERS: PCP Internal Medicine; Visit Provider Physician Assistant Medical | DX: S39.012D Strain of muscle, fascia and tendon of lower back, subsequent encounter (principal); X50.1XXD Overexertion from prolonged static or awkward postures, subsequent encounter; Z02.79 Encounter for issue of other medical certificate | CPT/HCPCS: 99213 ==

== ENCOUNTER → 2025-05-10 12:50 | Outpatient (BNVA) | payer OTHER, SELFPAY | PROVIDERS: PCP Internal Medicine; Visit Provider Emergency Medicine | DX: S39.012D Strain of muscle, fascia and tendon of lower back, subsequent encounter (principal); X50.1XXD Overexertion from prolonged static or awkward postures, subsequent encounter; Z02.79 Encounter for issue of other medical certificate | CPT/HCPCS: 99213 ==

== ENCOUNTER 2025-05-10 13:48 | Outpatient (REF) | payer OTHER, SELFPAY ==
[2025-05-10 16:11] LABS: MANUAL DIFF FLAG NO
[2025-05-10 16:17] LABS: Hematocrit 47.7 % (42.0-52.0); Hemoglobin 16.1 g/dl (14.0-18.0); Imm Gran Abs Auto 0.01 X10*3/uL (0.00-0.03); Imm Gran Pct Auto 0.2 % (0.0-0.4); Lymphocytes Absolute Auto 2.5 X10*3/uL (1.2-4.9); Mean Corpuscular HGB Conc 33.8 g/dl (31.0-36.0); Mean Corpuscular Hemoglobin 29.2 pg (27.0-33.0); Mean Corpuscular Volume 86.6 fL (80.0-98.0); NRBC Abs Auto 0.000 X10*3/uL (0.0-0.012); NRBC Pct Auto 0.0 /100WBC (0.0-0.2); Platelet Count 246 X10*3/uL (160-400); Red Blood Count 5.51 X10*6/uL (4.60-5.80); White Blood Count 5.8 X10*3/uL (4.8-10.8)
--- OUTSIDE RECORDS SUMMARY | 2025-05-10 18:05 | XMS_ITS | Clinical Summary ---
Author Organization [facility] Address [address] [place] [address] [place] [id number] Phone Care Team Providers Care Associate Professor Of Music Name Role Phone Dorys Sepulveda MD Primary Care Provider [phone] Social History Tobacco Use Types Packs/Day Years Used Date Smoking Tobacco: Never Assessed Education Answer Date Recorded Are you interested in more education? Not on adam e 07/31/2024 Are you concerned about learning? Not on file 07/31/2024 No 07/31/2024 No 07/31/2024 Digital Access Answer Date Recorded No 07/31/2024 No 07/31/2024 Reliable internet access at home? Not on file 07/31/2024 Device with a working camera? Not on file Sex and Gender Information Value Date Recorded Sex Assigned at Not on file Legal Sex Male 2:14 PM EST Gender Identity Not on file Sexual Orientation Not on file Plan of Treatment Health Maintenance Due Date Last Done Comments LIPID PANEL 1968 DEPRESSION SCREENING 1980 SMOKING Hx and SMOKELESS TOBACCO SCREENING 1981 HEPATITIS C SCREENING 1986 HIV ONE-TIME SCREENING (18-65 YEARS) 1986 COLOGUARD 2013 COLONOSCOPY 2013 COLORECTAL CANCER SCREENING 2013 FIT TEST 2013 FOBT 2013 SIGMOIDOSCOPY 2013 VIRTUAL COLONOSCOPY 2013 PNEUMOCOCCAL VACCINES (50+ years) (1 of 1 - PCV) 2018 ZOSTER VACCINES (1 of 2) 2018 INFLUENZA VACCINE (#1) 2025 , 05/20/2023, 04/06/2022, Additional history exists COVID-19 VACCINE (2024- season) 2025 10/30/2020, 09/30/2020 Adult Td,Tdap Booster 06/23/2025 06/23/2015, 015 RSV VACCINE (1 - 1-dose 75+ series) 2043 HEPATITIS A VACCINES Aged Out No long er eligible based on patient's age to complete this topic HIB VACCINES Aged Out No longer eligi ble based on patient's age to complete this topic MENINGOCOCCAL VACCINES (ACWY) Aged Out No longer eligible based on patient's age to complete this topic MENINGOCOCCAL VACCINES (B) Aged Out N o longer eligible based on patient's age to complete this topic Medical Devices Not on file Insurance [facility] [employer] [place] [id number] [facility] CHOICE [facility]ICE [facility] [employer] [facility] CHOICE [facility] CHO[facility] Care Teams Associate Professor Of Music Relationship Specialty Start Date End Date Dorys Sepulveda MD [address] [place] [address] Drive [address] [place] [phone] PCP - General Internal Medicine 07/30/24 Additional Source Comments The information contained in this document represents components of the legal health record. It is not the complete legal health record.[facility]
[2025-05-10 18:59] LABS: Alanine Aminotransferase 29 U/L (0-40); Albumin Level 4.7 g/dL (3.5-5.0); Alkaline Phosphatase 78 U/L (39-117); Anion Gap 10 (12-20); Aspartate Amino Transferase 31 U/L (5-37); Blood Urea Nitrogen 10 mg/dL (9-16); Calcium 9.4 mg/dL (8.4-10.2); Carbon Dioxide 30 mmol/L (22-29); Chloride 107 mmol/L (96-108); Cholesterol 259 mg/dL (<200); Estimated Glomerular Filt Rate > 60; HDL Cholesterol 53 mg/dL (>40); Potassium 4.0 mmol/L (3.3-5.1); Sodium 143 mmol/L (135-145); Total Protein 7.4 g/dL (6.5-8.0); Triglycerides 189 mg/dL (<150)
[2025-05-10 19:00] LABS: Free T4 (Free Thyroxine) 1.01 ng/dL (0.71-1.85); Thyroid Stimulating Hormone 0.76 uIU/mL (0.32-4.0)
[2025-05-11 00:24] LABS: Folate 8.2 ng/mL (> or = 4.0); Vitamin B12 298 pg/mL (200-900)
== END 2025-05-10 13:49 | disposition home or self-care (01) ==
LOC: HO.HMGCLDS 13:48
PROVIDERS: PCP Internal Medicine; Visit Provider Internal Medicine
DX: I10 Essential (primary) hypertension (principal); E78.00 Pure hypercholesterolemia, unspecified; Z12.5 Encounter for screening for malignant neoplasm of prostate; Z13.1 Encounter for screening for diabetes mellitus
CPT/HCPCS: 36415; 80053; 80061; 82607; 82746; 83036; 84153; 84439; 84443; 85025

== ENCOUNTER 2025-05-27 16:50 | Outpatient (AMB) | payer OTHER, SELFPAY ==
[2025-05-27 16:54] VITALS: BP 102/60; PULSE 87; RESP 18; O2SAT 96; BMI 26.9
--- NOTE | 2025-05-27 16:54 | A.OFFPC_ITS ---
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 Accompanied by: Self / Same As Patient Allergies povidone-iodine (Betadine) Allergy (Unknown, Verified 05/27/25 16:55) Stomach Pain soap (Betadine) Allergy (Unknown, Verified 05/27/25 16:55) Stomach Pain Cypxkkg-BZJ-XlU Reductase Inhibitor Adverse Reaction (Intermediate, Unverified 05/27/25 17:06) myalgia fenofibrate Adverse Reaction (Mild, Verified 05/27/25 16:55) body and stomach pain Medication List - Last Reconciled 05/27/25 by Dorys Sepulveda MD albuterol sulfate 90 mcg/actuation 2 puffs inhalation Q4H PRN cholecalciferol (vitamin D3) 50 mcg PO DAILY levocetirizine (Xyzal) 5 mg PO DAILY lisinopril 10 mg PO DAILY naproxen (Naprosyn) 500 mg PO BID PRN red yeast rice 600 mg PO DAILY sour diop extract (Tart Diop Extract) mg PO Tobacco use date assessed: 05/27/25 Dental Screening Dental Screen Date: 05/27/25 Did you have a dental visit in the last 12 months?: Yes Did you have a dental problem in the last 6 months where you did not have access to dental care?: No Was dental information given to patient?: Patient has dentist HPI HPI Comments History of Present Illness Details History of Present Illness The patient is a 54-year-old male presenting for a wellness visit and management of his chronic conditions. His past medical history is significant for asthma, nephrolithiasis, generalized anxiety disorder, obstructive sleep apnea, a history of tubular adenoma of the colon, hypertension, and hypercholesterolemia. His last colonoscopy was in December 2022. His last blood work in May revealed an LDL of 169 mg/dL, total cholesterol of 259 mg/dL, and triglycerides of 189 mg/dL, with an HDL of 53 mg/dL. He has a history of intolerance to statin medications due to joint pain and currently takes red yeast rice. His hypertension is managed with lisinopril 10 mg daily. The patient's prostate-specific antigen (PSA) level has been rising, with the most recent value being 3.71, up from 1.58 in 2020. His family history is notable for a father with colon cancer, and a brother and uncle with prostate cancer. His paternal grandfather had a heart attack at age 101. He reports a new complaint of a morning ache in the right upper abdomen that has been present for about two years but has become more noticeable recently. He has a remote history of a work-related lower back injury, for which he received physical therapy, and a sprained ankle. His current medications include albuterol as needed (not used recently), vitamin D, Xyzal, lisinopril, red yeast rice, tart diop extract, and naproxen as needed for pain. He has discontinued tizanidine. Health Maintenance The patient received his annual influenza vaccine. A discussion was held regarding the shingles vaccine, which is available at the pharmacy. He was counseled on reducing alcohol intake. He was advised to get an eye exam. His last colonoscopy was in December 2022, and he is clear for two more years. Follow-up is scheduled in six months to review lab results. Social History - Alcohol Use: Reports drinking approxim ately once a month, consuming a six-pack of beer in one sitting. - Tobacco and Illicit Drug Use: Denies e elizabeth smoking cigarettes or using recreational drugs. - Diet: Reports having recently cut red meat and eggs from his diet. He eats fish, bagels, and corn chips. He drinks six to eight glasses of water a day, mostly in the evening. - Exercise and Activity: Reports being l ess active recently, particularly after a sprained ankle and a back injury. He is just starting to get back into physical activity. - Sleep: Sleeps from 11 p.m. to 5 a.m. a nd denies waking up at night to urinate. - Stressors: Reports significant recent stress, including his uhnbvw-kk-mnp's hospitalization. Results - Lab Results (from May 10): - Blood Count: Normal, no anemia. - Metabolic Panel: Normal electrolytes a nd renal function. - Glucose: Normal blood sugar with a nor mal hemoglobin A1c. - Lipid Panel: LDL 169 mg/dL, Total Chol esterol 259 mg/dL, Triglycerides 189 mg/dL, HDL 53 mg/dL. - Prostate-Specific Antigen (PSA): 3.71, with a rising trend from 1.58 in 202. - Vitamin B12: Mildly low at 298. - Folic Acid: Normal. - Thyroid Function: Normal. - Stool Guaiac Test: Negative for occult blood. [facility] Medical History Hyperlipidemia Hypertriglyceridemia Ankle pain, right Sprain of right ankle Goiter Bilateral renal stones Generalized anxiety disorder Asthma Vitamin D deficiency Family history of colon cancer Surgical History History of colonoscopy History of vasectomy Family History Father Colon cancer Mother No problems noted. 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 Current occupational exposures/hazards: Yes Cognitive needs: No Hearing needs: No Vision needs: No Questionnaire Thrive Questionnaire Date Thrive assessed: 05/27/25 I am a: Patient What is your living situation today?: I have a steady place to live Within the past 12 months, did the food you bought not last and you didn't have the money to get more?: Never true Within the past 12 months, did you worry whether your food would run out before you got money to buy more?: I choose not to answer this question Do you have trouble paying for medicines?: No Do you have trouble getting transportation to medical appointments?: No Do you have trouble paying your heating and electricity bill?: No Do you have trouble taking care of your child, family member or friend?: No Do you have trouble with day-to-day activities such as bathing, preparing meals, shopping, managing finances, etc.?: No Are you currently unemployed and looking for a job?: No Are you interested in more education?: No Currently or been in a relationship where the following occur: No concerns reported THRIVE Score: 0 JUAN-7 AMB Questionnaire JUAN-7 Date JUAN - 7 assessed: 11/26/24 Source: Developed by Drs. David Diaz, Renetta Bateman, Jose Chavez and colleagues, with an educational césar from [employer] Review of Systems Narrative Review of Systems - Constitutional: Denies fevers, syncope, dizziness, nausea, or vomiting. - HEENT: Reports stuffy nose and sinus issues. Denies dysphagia or globus sensation. Reports hearing is subjectively fine. Vision is good for distance; denies seeing bright lights at night. - Cardiovascular: Denies chest pain, heaviness, or discomfort. - Respiratory: Denies waking with shortness of breath or dyspnea on exertion, including climbing a flight of stairs. - Gastrointestinal: Reports a morning ache in the right upper abdomen that has occurred for a couple of years. Denies heartburn. Bowel movements are regular. Denies hematochezia. - Genitourinary: Urination is fine. Denies nocturia or feeling of incomplete bladder emptying. Reports a 20-year history of blood being found in his urine on random drug tests. - Musculoskeletal: Reports a clicking sound in his knee that sometimes locks up but is not painful. Const Denies poor appetite and Denies weakness Eyes Denies no additional complaints ENT Reports Normal hearing present, Denies dizziness, Denies nasal congestion, Denies tinnitus and Denies sore throat Card Denies chest pain, Denies syncope, Denies rapid heart rate and Denies dyspnea Resp Denies cough and Denies dyspnea GI Denies change in stool character, Reports constipation, Denies diarrhea, Denies nausea and Denies vomiting Denies dysuria and Denies urinary frequency Neuro Reports Normal hearing present, Denies confusion, Denies dizziness, Denies syncope and Denies weakness Psych Denies confusion Physical exam (Primary Care) Vital Signs: Last Vital Signs Pulse 87 05/27/25 16:54 Resp 18 05/27/25 16:54 BP 120/70 05/27/25 17:05 Pulse Ox 96 05/27/25 16:54 Oxygen Delivery Method Room Air 05/27/25 16:54 BMI result Body Mass Index 26.9 Tobacco/Smoking Status: Tobacco use Status Tobacco use date assessed 05/27/25 05/27/25 16:58 Patient Tobacco Use Status Never used Tobacco 05/27/25 16:58 Tobacco use type Cigarette 05/27/25 16:58 e-Cigarette/Vaping Use Never Used 05/27/25 16:58 Thrive Assessment: Date of Thrive Assessment Date Thrive assessed 05/27/25 05/27/25 16:58 Currently or been in a relationship where the following occur: No concerns reported Narrative Physical Exam General: Cooperative, healthy appearing, comfortable, no acute distress and well developed Orientation: Patient oriented x3 Limitations: No limitations Head: Normal to inspection Ears: Hearing grossly normal bilaterally Nose: Normal external nose present Face and sinus: Normal facial exam Eyes: Appearance normal, both eyes and all related structures Neck: Normal visual inspection and Yes full ROM Respiratory: Normal respiratory effort and able to speak in complete sentences. Clear to auscultation bilaterally Cardiovascular: Regular rate and rhythm. Normal S1 and S2 GI: Normal to inspection. Soft to palpation and nontender Skin: No rashes or lesions noted Neuro: Patient oriented x3 Extremities: Normal to inspection Const General: No confusion Orientation/consciousness: No confusion HENMT Head: Yes normocephalic Ears: external ears normal and TM's normal bilaterally Face and sinus: Yes normal facial exam Mouth: moist mucous membranes Throat: Yes tonsils normal Eyes Conjunctivae: conjunctivae normal Pupils: Equal, round and reactive pupils present and Pupil accommodation reflex normal Direct Ophthalmoscopy: normal light reflex Neck Neck: No lymphadenopathy Thyroid: Thyroid normal Chest Chest palpation & inspection: normal inspection of the chest Resp Effort & Inspection: normal respiratory effort and no audible wheezes Auscultation: clear to auscultation bilaterally, no crackles, no wheezes and lung sounds not diminished Cardio Rate: regular rate Rhythm: regular rhythm Peripheral pulses: radial pulses present and dorsalis pedis present GI Other: guaiac negative , mild prostate enlargement Palpation (GI): no masses Auscultation: normal bowel sounds and normoactive bowel sounds Male General Exam: Yes normal external exam Skin General skin exam: no rashes or lesions noted Rashes: no rashes Neuro General: No confusion Cranial nerves: Yes Equal, round and reactive pupils present and Yes Normal hearing present Cognition (Neuro): normal cognition Gait exam (Neuro): Normal gait present Motor exam (neuro): 5/5 motor strength present throughout Deep tendon reflexes (DTR's): Right brachioradialis reflex intensity grade: 2+, Left brachioradialis reflex intensity grade: 2+, Right patellar reflex intensity grade: 2+ and Left patellar reflex intensity grade: 2+ Extrem General: No edema Office Procedures Flu Questionnaire Does the patient have a severe egg allergy?: No Does the patient have severe life threatening allergies?: No Does the patient have a fever or illness today?: No Has the patient ever had Guillain-[place] Syndrome?: No Has the patient ever had any past reaction to a flu shot?: No Immunizations Fluarix [id number] (PF) 45 mcg (15 mcg x 3)/0.5 mL IM syringe Performing Provider: Dorys Sepulveda MD [facility] [place] [facility] Administered by: BRAD Cartagena on 05/27/25 17:42 Dose Route Admin Location Dispensed Lot Number Expiration Date NDC Manager Marketing Communication 0.5 mL IM Left Deltoid 0.5 mL [id number] 12/03/25 [id number] [employer] VIS Given Date VIS Provided VIS Publication Date 05/27/25 Single Vaccine 24 Eligibility Eligibility Date Funding Source Not [facility] Eligible 05/27/25 Private Coding Level of Care Code Est Pt Prev Care 40-64y(66875) Diagnoses Annual physical exam Z00.00 Hypertension I10 Hypercholesterolemia E78.00 Generalized anxiety disorder F41.1 Mild intermittent asthma without complication J45.20 Asthma complication type: uncomplicated Asthma persistence: intermittent Asthma severity: mild RUQ abdominal pain R10.11 PSA elevation R97.20 Assessment & Plan Assessment & Plan (1) Annual physical exam: Code(s): Z00.00 - Encounter for general adult medical examination without abnormal findings Category: Medical Plan: Patient is advised to eat healthy, keep well hydrated, keep active and have adequate sleep. (2) Hypertension: Code(s): I10 - Essential (primary) hypertension Category: Medical Plan: Continue with blood pressure medication. Decrease salt intake and exercise on lisinopril 10 mg once a day (3) Hypercholesterolemia: Code(s): E78.00 - Pure hypercholesterolemia, unspecified Category: Medical Plan: Avoid fried foods, chicken skin, eggs, butter margarine, pastries and meat. Be it pork or beef they have a lot of cholesterol LDL goal of less than 130 and triglyceride of less than 150 (4) Generalized anxiety disorder: Code(s): F41.1 - Generalized anxiety disorder Category: Medical (5) Asthma: Code(s): J45.909 - Unspecified asthma, uncomplicated Category: Medical Qualifiers: Asthma complication type: uncomplicated Asthma persistence: intermittent Asthma severity: mild Qualified Code(s): J45.20 - Mild intermittent asthma, uncomplicated Plan: On albuterol inhaler as needed (6) RUQ abdominal pain: Code(s): R10.11 - Right upper quadrant pain Category: Medical (7) PSA elevation: Code(s): R97.20 - Elevated prostate specific antigen [PSA] Category: Medical Plan: retest advised avoid sexual intercourse 3 days, staddling activity like biking, horseback riding before the blood work Plan Plan Patient was informed and verbally consented to the use of an ambient scribe for clinic note documentation during this visit. 1. Hypercholesterolemia The patient's cholesterol remains elevated, with an LDL of 169 mg/dL, despite dietary modifications and use of red yeast rice. Given his intolerance to statins, alternative treatment options were discussed, including Zetia (ezetimibe), which blocks cholesterol absorption in the gut, and injectable medications that are administered every two weeks. The patient's high cholesterol is likely genetic. A follow-up cholesterol panel will be ordered in six months along with his PSA test. 2. Elevated Prostate-Specific Antigen Level The patient's PSA has shown a concerning upward trend, rising from 1.58 in 2020 to 3.71, which is approaching the cutoff of 4.0. Given this rise and his family history of prostate cancer, a digital rectal exam was performed. The plan is to retest his PSA level in six months. The patient was instructed to avoid sexual contact and straddling activities like biking for 3-4 days prior to the blood draw to ensure an accurate reading. If the number continues to rise, it will be a significant concern. 3. Right Upper Quadrant Abdominal Pain The patient reports a morning ache in the right upper quadrant that has been present for a couple of years but is more frequent recently. Physical exam revealed tenderness in the right upper quadrant, the location of the gallbladder. An abdominal ultrasound has been ordered to evaluate the gallbladder and surrounding structures. 4. Hypertension The patient's hypertension is well-controlled on his current regimen. His blood pressure was 120/70 mmHg in the office. He will continue taking lisinopril 10 mg once daily. 5. Asthma The patient has a history of asthma but reports he has not needed to use his albuterol inhaler recently. He will continue to keep his albuterol inhaler for as-needed use. Discussion Notes I discussed the patient's lab results with him, highlighting the persistently high cholesterol and the rising trend in his PSA. I explained that his hypercholesterolemia is likely genetic, as it has worsened despite his dietary changes. We reviewed the risks of high cholesterol and discussed treatment options given his history of statin intolerance, including the oral medication Zetia and injectable alternatives, reviewing potential side effects such as GI u pset with Zetia and the two-week injection schedule for the other option. Regarding his rising PSA, I explained that while the current number of 3.71 is still below the 4.0 cutoff, the upward trend is a concern, especially with his family history of prostate cancer. I informed him of the plan to retest in six months and provided explicit instructions on how to prepare for the test to ensure accuracy, including avoiding sexual activity and biking for 3-4 days beforehand. For his new complaint of right upper quadrant pain, I explained that this location corresponds to the gallbladder and ordered an abdominal ultrasound to investigate further. We also discussed health maintenance, including the importance of protective measures like masking in crowds, and he received his annual flu shot. I recommended he schedule an eye exam and consider the shingles vaccine. The patient was agreeable to the plan and will follow up in six months. Patient Instructions - Continue taking your lisinopril 10 mg daily for blood pressure. - Proceed to the lab for an ultrasound of your abdomen to check your gallbladder, as discussed for your morning abdominal ache. - In 6 months, please have your blood drawn to recheck your cholesterol and prostate (PSA) levels. - Important: For 3-4 days before your blood test for the PSA level, you must avoid all sexual activity and straddling sports like bicycle riding. This is to ensure the test result is accurate. - You received your annual flu shot today. Please consider getting the shingles vaccine, which is a two-shot series available at your local pharmacy. - It is recommended that you reduce your alcohol intake. Do not drink more than two alcoholic beverages at one time. - Please schedule an eye exam, as it has been a few years since your last one. - Schedule a follow-up appointment in 6 months to review your lab results and discuss the next steps. Orders: Orders Prostate Specific Antigen Scr 6 Months E78.00 - Pure hypercholesterolemia, unspecified US abdomen complete Today R10.11 - Right upper quadrant pain, R79.89 - Other specified abnormal findings of blood chemistry Lipid Panel 6 Months E78.00 - Pure hypercholesterolemia, unspecified Comprehensive Met. Panel 6 Months E78.00 - Pure hypercholesterolemia, unspecified Influenza [id number] Immunization Today Z23 - Encounter for immunization
[2025-05-27 17:05] VITALS: BP 120/70
--- OUTSIDE RECORDS SUMMARY | 2025-05-27 18:55 | XMS_ITS | Patient Health Record ---
Author Organization [facility] Address [address] [place] [address] Care Team Providers Care Spiral Weaver Name Role Phone Dorys Sepulveda MD Primary Care Provider David Bates [phone] Allergies Allergen (clinical drug ingredient) Drug/Non Drug Allergy documented on EMR Reaction Allergy Type Onset Date Status povidone-iodine benadyne (uncoded) Unknown Allergy Active Reason For Referral No Information Medications Medication SIG (Take, Route, Frequency, Duration) Notes Start Date End Date Status Fenofibrate Not-Taki ng/PRN Atorvastatin Calcium 80 MG Tablet 1 tablet Orally Once a day; Duration: 30 day(s) Active Allergy Relief prn Activ e Aspirin Not-Taking /PRN Multivitamin Active Vitamin D Active Triple Flex Active Immunizations Vaccine Route Administration Date Status Comme nts Influenza Unknown 03/23/2022 Administered Social History Social History Additional Details Category Social Info Options Details Miscellaneous: Marital status: Occupation: automobile radiator [employer] Notes: Nonsmoker; occasional alcoho l Nonsmoker; occasional alcoho l Problems Problem Type SNOMED Code ICD Code Onset Dates Problem Status W/U Status Risk Notes Problem Colon cancer screening (696282420) Colon cancer screening (Z12.11) Active confirmed Problem Screening for malignant neoplasm of colon (556543121) Encounter for screening for malignant neoplasm of colon (Z12.11) Active confirmed Problem Diverticular disease of colon (771131936) Diverticulosis of large intestine without perforation or abscess without bleeding (K57.30) Active confirmed Problem Screening for malignant neoplasm of rectum (038452481) Encounter for screening for malignant neoplasm of rectum (Z12.12) Active confirmed Problem Preprocedural examination (738259714741135) Preprocedural examination (Z01.818) Active confirmed Problem Family History of Cancer of Colon (Situation) (378515563) Family history of colon cancer (Z80.0) Active confirmed Problem Right upper quadrant pain (969164142) RUQ abdominal pain (R10.11) Active confirmed Plan Of Treatment Pending Test Test Name Order Date Pathology 11/22/2022 Future Test Test Name Order Date COLONOSCOPY 10/22/2015 COLONOSCOPY 09/29/2022 Insurance Providers Payer Name Payer Address Payer Phone Subscriber Number Group Number Insured Name Patient Relationship to Insured Coverage Start Date Coverage End Date [facility] [address] [place] [address] [id number] ROY Self - patient is the insured Medical (General) History Medical History History ICD Code Seasonal allergies/asthma Kidney stones/Hematuria Denies NH,DM,CVA,renal disease Screening Colonoscopy in 2009 with remov al of a hyperplastic polyp Screening Colonoscopy in 02/2016 was nega tive Hyperlipidemia Surgical History Surgery Date(Month/Year) Vasectomy Small cyst right side of nose
--- OUTSIDE RECORDS SUMMARY | 2025-05-27 18:56 | XMS_ITS | Clinical Summary ---
Author Organization [facility] Address [address] [place] [address] [place] [id number] Phone Care Team Providers Care Flatwork Folder Name Role Phone Dorys Sepulveda MD Primary Care Provider [phone] Social History Tobacco Use Types Packs/Day Years [...] topic Medical Devices Not on file Insurance [facility] [employer] [place] [id number] [facility] CHOICE [facility] CHOICE [facility] [employer] [facility] Care Teams Flatwork Folder Relationship Specialty Start Date End Date Dorys Sepulveda MD [address] [place] [address] Drive [address] [place] [id number] PCP - General Internal Medicine 07/30/24 Additional Source Comments The information contained in this document represents components of the legal health record. It is not the complete legal health record.[facility]
== END 2025-05-27 17:43 | disposition home or self-care (01) ==
LOC: HO.HMCH 16:51
PROVIDERS: PCP Internal Medicine; Visit Provider Internal Medicine
DX: Z00.00 Encounter for general adult medical examination without abnormal findings (principal); I10 Essential (primary) hypertension; E78.00 Pure hypercholesterolemia, unspecified; F41.1 Generalized anxiety disorder; J45.20 Mild intermittent asthma, uncomplicated; R10.11 Right upper quadrant pain; R97.20 Elevated prostate specific antigen [PSA]; Z23 Encounter for immunization

== ENCOUNTER → 2025-05-27 16:50 | Outpatient (BNVA) | payer OTHER, SELFPAY | PROVIDERS: PCP Internal Medicine; Visit Provider Internal Medicine | DX: Z23 Encounter for immunization (principal) | CPT/HCPCS: 90471; 90656 ==